=== PATIENT | male | born 1960 | race Caucasian/White ===

== ENCOUNTER → 2023-09-12 08:15 | Outpatient (BNVA) | payer SELFPAY | PROVIDERS: Family Provider Nurse Practitioner Family; PCP Nurse Practitioner Family; Visit Provider Nurse Practitioner Family | DX: D37.01 Neoplasm of uncertain behavior of lip (principal) | CPT/HCPCS: 80053; 85007; 85027; 85610; 85730 ==

== ENCOUNTER 2023-09-14 13:56 | Outpatient (CLI) | payer SELFPAY ==
--- NOTE | 2023-09-14 14:03 | CTR_ITS ---
PROCEDURE INFORMATION: Exam: CT Neck With Contrast Exam date and time: 09/14/2023 2:29 PM Age: 63 years old Clinical indication: Other: Neoplasm; Additional info: Neoplasm of uncertain behavior of lip TECHNIQUE: Imaging protocol: Computed tomography of the neck with contrast. Radiation optimization: All CT scans at this facility use at least one of these dose optimization techniques: automated exposure control; mA and/or kV adjustment per patient size (includes targeted exams where dose is matched to clinical indication); or iterative reconstruction. Contrast material: OMNI 350; Contrast volume: 100 ml; Contrast route: INTRAVENOUS (IV); COMPARISON: No relevant prior studies available. RADIATION DOSE METRICS: Total DLP (mGy-cm): 239.82 FINDINGS: Paranasal sinuses: Moderate mucosal thickening is present in the right maxillary sinus. A mucous retention cyst is noted in the left maxillary sinus. Dental: There is lucency around the right mandibular central incisor, lateral incisor, canine, and 1st premolar teeth. This is likely related to periodontal disease rather than destruction from the adjacent pre mandibular mass. Pharynx: Unremarkable. No significant tonsillar enlargement. Larynx: Unremarkable. Epiglottis is normal. Prevertebral and retropharyngeal spaces: Unremarkable. Salivary glands: Normal. Glands are normal in size. Thyroid: A nonspecific 10 mm left thyroid nodule is present. Lymph nodes: An abnormal 2.2 x 1.9 x 1.4 cm right submandibular lymph node is noted. Multiple tiny nonspecific bilateral submandibular and cervical chain lymph nodes are noted. Trachea: Visualized trachea is unremarkable. Lungs: Unremarkable as visualized. Bones/joints: No acute fracture is identified. Moderate degenerative changes of the cervical spine are present. Soft tissues: There is a 4.7 x 3.3 x 2.9 cm solid mass involving the lower lip and pre mandibular soft tissues. Malignancy is likely. CT/CT neck w con* [id number] IMPRESSION: 1. 4.7 x 3.3 x 2.9 cm solid mass involving the lower lip and pre mandibular soft tissues. Malignancy is likely. 2. Pathologic 2.2 x 1.9 x 1.4 cm right submandibular lymph node COMMENTS: Consistent with the [employer]'s Incidental Findings Committee white paper (J Am Terri Radiol 2015): In patients aged 35 years and older with an incidental thyroid nodule equal to or greater than 1.[address], MRI or extrathyroidal US, further evaluation with dedicated thyroid US is recommended for patients with normal life expectancy and without comorbidities. For smaller nodules without suspicious features, no further evaluation or follow up is recommended.
[2023-09-14] MEDS: iohexol 350 mg/mL 500 mL Btl (per mL) IV (14:47)
== END 2023-09-14 13:57 | disposition home or self-care (01) ==
LOC: RAD 13:56
PROVIDERS: Family Provider Nurse Practitioner Family; PCP Nurse Practitioner Family; Visit Provider Specialist
DX: D37.01 Neoplasm of uncertain behavior of lip (principal); J34.89 Other specified disorders of nose and nasal sinuses; J34.1 Cyst and mucocele of nose and nasal sinus; K08.89 Other specified disorders of teeth and supporting structures; E04.1 Nontoxic single thyroid nodule; I89.9 Noninfective disorder of lymphatic vessels and lymph nodes, unspecified; M47.812 Spondylosis without myelopathy or radiculopathy, cervical region
CPT/HCPCS: 70491; Q9967

== ENCOUNTER 2023-11-17 08:48 | Oncology outpatient (recurring) (ONCR) | payer OTHER, SELFPAY ==
--- NOTE | 2023-11-10 11:46 | N.ONRAD NP_ITS ---
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 4 cm, DOI@ least 2.5 cm, clinically ulcerative lesion 3.8 x 3.5 cm,- CLSI/PNI, invasion of mandible cortex and involves skin of the face, -surgical margins- 2 mm to deep FOM, 3.5 mm to midline FOM, - bone margin, + Leukoplakia 1.8 x 1.6 cm, LN+--LN LEFT LEVELS IA 0/3, IB 0/2, II 0/15, III/IV 0/18, LN RIGHT IB 1/4-2.5 cm with micro extranodal extension, IIA 0/7, III 0/10, IV 0/17, -Salivary Glands, PARTIAL DENTAL EXTRACTION-11/02/2023, DR FREDERICK consult 11/10/2023, weekly CDDP, port placement not recommended due to venous access GOOD, Quit Cigarette Smoking- 30 YEARS AGO, LOWER LIP TOBACCO Chew X 30 YRS-quit August 2023 @ DX, KPS 90, FM HX ++ COLON CANCER, composite total lower lip resection with anterior mandibulectomy, BL Neck SLN resection, Left Osteocutaneous fibular free flap, intraoperative external fixation of the mandible, mandibular plating, STSG 6 x 10 cm, tracheostomy, G-tube placement, CT SIM @ 0900 11/17/2023. STAGE: MARCO [id number] Diagnosis: C14.8, C 77.0 Radiotherapy to date: Summary > No prior radiation therapy. Chief Complaint / History of Present Illness: This is a pleasant 63-year-old male who presented with SCC of the lower lip biopsy-proven in August 2023. Patient reports that around November 2022 he started noticing swelling and soreness in the right lateral lower lip extending toward the midline he used antibiotic creams with some relief and then. States now the mass had gotten larger growing out into this skin and making his anterior teeth loose. BX by Dr. Dey in August of this year noted SCC. Patient has a 30-year history of a chewing tobacco primarily in the right lower lip. CT STN on 09/14/2023 showed a submandibular lymph node measuring 2.2 x 1.9 x 1.4 cm that appears pathologic. There is also a solid mass in the right lower lip/premandibular soft tissues measuring 4.7 x 3.3 x 2.9 cm and this was consistent with malignancy. CT of the chest on 09/14/2023 showed no evidence of metastatic disease. Patient was referred to [facility] for composite resection. He underwent this on 09/27/2023 and this returned MD-Invasive SCC. 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, DOI@ least 2.5 cm, clinically ulcerative lesion 3.8 x 3.5 cm,- CLSI/PNI, invasion of mandible cortex and involves skin of the face, -surgical margins- 2 mm to deep FOM, 3.5 mm to midline FOM, - bone margin, + Leukoplakia 1.8 x 1.6 cm, LN+--LN LEFT LEVELS IA 0/3, IB 0/2, II 0/15, III/IV 0/18, LN RIGHT IB 1/4-2.5 cm with micro extranodal extension, IIA 0/7, III 0/10, IV 0/17, -Salivary Glands, PARTIAL DENTAL EXTRACTION-11/02/2023, DR FREDERICK consult 11/10/2023, weekly CDDP, port placement not recommended due to venous access GOOD, Quit Cigarette Smoking- 30 YEARS AGO, LOWER LIP TOBACCO Chew X 30 YRS-quit August 2023 @ DX, KPS 90, FM HX ++ COLON CANCER, composite total lower lip resection with anterior mandibulectomy, BL Neck SLN resection, Left Osteocutaneous fibular free flap, intraoperative external fixation of the mandible, mandibular plating, STSG 6 x 10 cm, tracheostomy, G-tube placement. 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 Current Medications: lisinopril 10 mg PO DAILY Allergies: Penicillins Allergy (Severe, Verified 11/10/23 08:47) ADR-Itching Sulfa (Sulfonamide Antibiotics) Allergy (Intermediate, Verified 11/10/23 08:47) ADR-Nose Bleed Medical History: No history of collagen vascular disease. No previous radiation therapy. HTN, Mild Obesity, Snoring Surgical History: Past femur fracture repair, as noted above Family History: Paternal family history positive for colon cancer with 2 uncles and 1 aunt. 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 Social History: Smoking and tobacco/nicotine status: As noted above Current Complaints / Review of Systems: . Patient presently denies any rheumatic fever or scarlet fever diabetes thyroid hepatitis jaundice ulcers seizures bone or joint problems bowel or bladder problems neurological problems or psychiatric problems except as noted above. Patient has not had a colonoscopy in the past. Vital Signs: Performed on 11/10/2023 9:27 AM BMI - 23.88 kg/m2 (high), Height - 73 in, Weight - 181 lbs, Temperature - 98.7 f, Pulse - 120 /min (high), Respiration - 18 /min, O2 Sat - 99 %, Pain - 0, Fatigue - 0 and BP - 118/ 86 mm(hg). Physical Exam: Pt is AAOx3. Face: No scars lesions or masses noted. Ears: Normal Nose: No external lesions. Oral Cavity/Oropharynx: Lower lip lip reconstruction intact crusting around the flap edges with noted drooling. Patient can open 40 cm from superior lip to graft. Remaining teeth in the lower molars back are in poor repair with little recent fillings placed. Anterior teeth are missing with good healing noted. Grafting materials appear intact. Abdomen: G-tube placed Extremities: right thigh and ankle area bandaged from graft sites. Left forearm flap area healing well with scar noted Vertebral Exam: shows no bony tenderness. Performance Status: KPS 90 Pathology: As noted above Lab: Imaging: See HPI Impression: MD-Invasive SCC RT LOWER LIP, 5.5 x 4 cm DOI@ least 2.5 cm Clinically ulcerative lesion 3.8 x 3.5 cm - CLSI/PNI Invasion of mandible cortex and involves skin of the face -Surgical Margins- 2 mm to deep FOM, 3.5 mm to midline FOM -Bbone Margin + Leukoplakia 1.[address]--LN LEFT LEVELS IA 0/3, IB 0/2, II 0/15, III/IV 0/18, LN RIGHT IB 1/4-2.5 cm with micro extranodal extension, IIA 0/7, III 0/10, IV 0/17 -Salivary Glands PARTIAL DENTAL EXTRACTION-11/02/2023 DR FREDERICK Consult 11/10/2023, weekly CDDP Port placement not recommended due to venous access GOOD Quit Cigarette Smoking- 30 YEARS AGO, LOWER LIP TOBACCO Chew X 30 YRS-quit August 2023 @ DX KPS 90 FM HX ++ COLON CANCER Composite total lower lip resection with anterior mandibulectomy BL Neck SLN resection Left Osteocutaneous fibular free flap Intraoperative external fixation of the mandible, mandibular plating STSG 6 x 10 cm Tracheostomy G-tube Placement PLAN: Discussed with patient and options regarding treatment of this locally advanced SCC of the lower lip Questions answered to their satisfaction NCCN version 4.2023 oral cavity to include mucosal lip were discussed in detail with the patient and . We would recommend delay in simulation for another week due to grafting procedures as well as recent teeth extraction. CT simulation and evaluation by Dr. Elliott will be done on 11/17/2023. We did discuss our findings with Dr. Frederick this date and my recommendation to wait 1 week for simulation. Signed by: 11/10/2023 11:45:31 AM <<Signature on File>> Time spent with patient: CPT Code: CPT Code:
== END 2023-11-23 23:59 | disposition home or self-care (01) ==
PROVIDERS: Family Provider Nurse Practitioner Family; PCP Nurse Practitioner Family; Visit Provider Radiology Radiation Oncology
DX: Z51.0 Encounter for antineoplastic radiation therapy (principal); C00.8 Malignant neoplasm of overlapping sites of lip; C79.51 Secondary malignant neoplasm of bone; C79.2 Secondary malignant neoplasm of skin; Z87.891 Personal history of nicotine dependence; Z93.0 Tracheostomy status; Z93.1 Gastrostomy status
CPT/HCPCS: 77300; 77301; 77334; 77338

== ENCOUNTER 2023-12-09 09:28 | Oncology outpatient (recurring) (ONCR) | payer OTHER, SELFPAY ==
[2023-11-24 08:22] VITALS: BP 133/76; PULSE 96; RESP 16; TEMP 36.5; O2SAT 94
[2023-11-24 08:50] LABS: Basophils % 0.2 %; Eosinophils # 0.2 10^3/uL (0.0-0.8); Eosinophils % 2.4 %; Hematocrit 41.5 % (37-53); Lymphocytes # 1.6 10^3/uL (0.8-4.8); Lymphocytes % 17.4 %; Mean Corpuscular HGB Conc 33.7 g/dL (30-55); Mean Corpuscular Hemoglobin 28.6 pg (27-33); Mean Corpuscular Volume 84.9 fl (82-101); Mean Platelet Volume 12.2 fL (7.4-10.4); Monocytes # 0.8 10^3/uL (0.2-0.9); Monocytes % 8.4 %; Neutrophils # 6.33 10^3/uL (1.8-7.7); Neutrophils % 71.3 %; Nucleated Red Blood Cells % 0 %; Platelet Count 310 10^3/cmm (157-399); Red Blood Count 4.89 10^6/uL (3.85-5.65); Red Cell Distribution Width 12.5 % (12.1-15.1); White Blood Count 8.89 10^3/uL (3.29-11.43)
[2023-11-24 09:08] LABS: Alanine Aminotransferase 27 U/L (0-41); Albumin Level 4.1 g/dL (3.5-5.2); Alkaline Phosphatase 100 U/L (40-130); Blood Urea Nitrogen 17 mg/dL (8-23); Calcium 9.7 mg/dL (8.5-10.5); Carbon Dioxide 23 mmol/L (22-29); Chloride 102 mmol/L (98-107); Globulin 3.6 g/dL (1.3-4.6); Glomerular Filtration Rate 136.5 mL/min (90-130); Glucose 133 mg/dL (65-115); Osmolality Calculated 291 mOsm/kg (285-295); Sodium 139 mmol/L (136-145); Total Bilirubin 0.2 mg/dL (0.15-1.2); Total Protein 7.7 g/dL (6.6-8.7)
[2023-11-24 09:09] LABS: Anion Gap 17.9 (5-19); Aspartate Amino Transferase 20 U/L (0-40); Potassium 3.9 mmol/L (3.5-5.1)
[2023-11-24] MEDS: magnesium sulfate premix 2 GM/50 ML PIGGYBACK IV (09:24)
[2023-11-24] MEDS: sodium chlor 0.9% + KCl 20 mEq 20 MEQ/1,000 ML BAG 500 MEQ IV (09:24)
[2023-11-24 10:43] VITALS: BMI 25.0
[2023-11-24] MEDS: diphenhydrAMINE 50 mg/mL SDV 1mL 25 MG IVP (11:39)
[2023-11-24] MEDS: sodium chloride 0.9% 250 ML 75 ML IV (11:39)
[2023-11-24] MEDS: famotidine 20 mg/2 mL INJ IVP (11:41)
[2023-11-24] MEDS: palonosetron 0.25 mg/5 mL SDV IVP (11:50)
[2023-11-24] MEDS: OLANZapine 5 mg TABLET PO (11:54)
[2023-11-24] MEDS: dexamethasone 4 mg/mL INJ 12 MG IVP (11:55)
[2023-11-24] MEDS: fosaprepitant 150 MG in sodium chloride 0.9% 150 ML 300 MG IV (12:06)
[2023-11-24] MEDS: SODIUM CHLORIDE 0.9% IV (12:40)
[2023-11-24] MEDS: CISPLATIN IV (12:40)
[2023-11-24] MEDS: FUROsemide 10 mg/mL SDV 2mL 20 MG IVP (14:17)
[2023-11-24] MEDS: potassium chloride 20 MEQ in sodium chloride 0.9% 500 ML 500 MEQ IV (14:21)
[2023-11-24 16:35] VITALS: BP 113/65; PULSE 83; RESP 16; O2SAT 93
--- NOTE | 2023-11-29 10:04 | ONCRAD TMN_ITS ---
Radiation Oncology Weekly Treatment Management Patient: Dolly Andujar> MR#: [id number] : 1960> Attending Physician: Dr. Kim Vitale Date of Service: 11/29/2023 Fractions: 4 out of 30 Referring Physician(s) : Diagnosis: C14.8 - Malignant neoplasm of overlapping sites of lip, oral cavity and pharynx, Diagnosed 10/07/2023 (Active) Stage X, C77.0 - Secondary and unspecified malignant neoplasm of lymph nodes of head, face and neck, Diagnosed 10/07/2023 (Active) Radiotherapy to date: Course: HN 2023, Treatment Site: HN 60Gy, Ref. ID: [id number], Energy: 6X, Dose/Fx (cGy): 200, #Fx: , Dose Correction (cGy): 0, Total Dose Delivered (cGy): 800, Start Date: 11/24/2023, Elapsed Days: 5 Reason for visit: The patient is being seen today as part of their regularly scheduled weekly on treatment visits to assess for acute toxicities from radiotherapy. Review of Systems: Patient has noticed no changes. He had no questions today Vital Signs: Performed on 11/29/2023 9:38 AM BMI - 24.065 kg/m2 (high), Height - 73 in, Weight - 182.4 lbs, Temperature - 97.7 f, Pulse - 90 /min, Respiration - 18 /min, O2 Sat - 98 %, Pain - 0, Fatigue - 0 and BP - 112/ 73 mm(hg). Physical Exam: No changes on exam. He does have the skin graft area on his left calf wrapped today. He did meet with the surgeon last week and was told he would take more time to heal. Imaging: Radiation therapy imaging related to accurate target localization (i.e. KV, MV and CBCT) was reviewed. Appropriate changes, if any, were made to ensure treatment accuracy. Plan: Will continue with his treatments as planned. He is using heliosis and the BL I-S probiotic. Signed by: Dr. Kim Vitale 11/29/2023 10:02:27 AM
[2023-12-01 07:59] LABS: Basophils % 0.3 %; Eosinophils # 0.2 10^3/uL (0.0-0.8); Eosinophils % 1.7 %; Hematocrit 40.6 % (37-53); Lymphocytes # 1.4 10^3/uL (0.8-4.8); Lymphocytes % 13.1 %; Mean Corpuscular HGB Conc 34.5 g/dL (30-55); Mean Corpuscular Hemoglobin 29.1 pg (27-33); Mean Corpuscular Volume 84.4 fl (82-101); Mean Platelet Volume 11.9 fL (7.4-10.4); Monocytes # 0.8 10^3/uL (0.2-0.9); Monocytes % 7.4 %; Neutrophils # 8.12 10^3/uL (1.8-7.7); Neutrophils % 76.9 %; Nucleated Red Blood Cells % 0 %; Platelet Count 292 10^3/cmm (157-399); Red Blood Count 4.81 10^6/uL (3.85-5.65); Red Cell Distribution Width 12.4 % (12.1-15.1); White Blood Count 10.55 10^3/uL (3.29-11.43)
[2023-12-01 08:12] LABS: Alanine Aminotransferase 30 U/L (0-41); Albumin Level 4.1 g/dL (3.5-5.2); Alkaline Phosphatase 103 U/L (40-130); Blood Urea Nitrogen 26 mg/dL (8-23); Calcium 9.9 mg/dL (8.5-10.5); Carbon Dioxide 22 mmol/L (22-29); Chloride 99 mmol/L (98-107); Creatinine Clr Calc Pharmacy 106.3893; Globulin 3.5 g/dL (1.3-4.6); Glucose 141 mg/dL (65-115); Osmolality Calculated 285 mOsm/kg (285-295); Sodium 134 mmol/L (136-145); Total Bilirubin 0.2 mg/dL (0.15-1.2); Total Protein 7.6 g/dL (6.6-8.7)
[2023-12-01 08:14] LABS: Anion Gap 17.5 (5-19); Aspartate Amino Transferase 21 U/L (0-40); Potassium 4.5 mmol/L (3.5-5.1)
[2023-12-01] MEDS: magnesium sulfate premix 2 GM/50 ML PIGGYBACK IV (08:40)
[2023-12-01] MEDS: sodium chlor 0.9% + KCl 20 mEq 20 MEQ/1,000 ML BAG 500 MEQ IV (08:40)
[2023-12-01] MEDS: fosaprepitant 150 MG in sodium chloride 0.9% 150 ML 300 MG IV (11:03)
[2023-12-01] MEDS: sodium chloride 0.9% 250 ML 75 ML IV (11:03)
[2023-12-01] MEDS: OLANZapine 5 mg TABLET PO (11:04)
[2023-12-01] MEDS: dexamethasone 4 mg/mL INJ 12 MG IVP (11:04)
[2023-12-01] MEDS: diphenhydrAMINE 50 mg/mL SDV 1mL 25 MG IVP (11:13)
[2023-12-01] MEDS: palonosetron 0.25 mg/5 mL SDV IVP (11:21)
[2023-12-01] MEDS: famotidine 20 mg/2 mL INJ IVP (11:26)
[2023-12-01] MEDS: SODIUM CHLORIDE 0.9% IV (12:27)
[2023-12-01] MEDS: CISPLATIN IV (12:27)
[2023-12-01] MEDS: FUROsemide 10 mg/mL SDV 2mL 20 MG IVP (13:26)
[2023-12-01] MEDS: potassium chloride 20 MEQ in sodium chloride 0.9% 500 ML 500 MEQ IV (13:29)
[2023-12-01 14:50] VITALS: BP 132/78; PULSE 85; RESP 16; TEMP 36.6; O2SAT 98
--- NOTE | 2023-12-06 10:06 | ONCRAD TMN_ITS ---
Radiation Oncology Weekly Treatment Management Patient: Dolly Andujar> MR#: [id number] : 1960> Attending Physician: Dr. Kim Vitale Date of Service: 12/06/2023 Fractions: 9 out of 30 Referring Physician(s) : Diagnosis: C14.8 - Malignant neoplasm of overlapping sites of lip, oral cavity and pharynx, Diagnosed 10/07/2023 (Active) Stage X, C77.0 - Secondary and unspecified malignant neoplasm of lymph nodes of head, face and neck, Diagnosed 10/07/2023 (Active) Radiotherapy to date: Course: HN 2023, Treatment Site: HN 60Gy, Ref. ID: [id number], Energy: 6X, Dose/Fx (cGy): 200, #Fx: , Dose Correction (cGy): 0, Total Dose Delivered (cGy): 1,800, Start Date: 11/24/2023, Elapsed Days: 12 Reason for visit: The patient is being seen today as part of their regularly scheduled weekly on treatment visits to assess for acute toxicities from radiotherapy. Review of Systems: Patient has noticed no changes in his oral cavity. Vital Signs: Performed on 12/06/2023 9:41 AM BMI - 24.17 kg/m2 (high), Height - 73 in, Weight - 183.2 lbs, Temperature - 97 f, Pulse - 99 /min, Respiration - 18 /min, O2 Sat - 97 %, Pain - 0, Fatigue - 0 and BP - 125/ 79 mm(hg). Physical Exam: No changes on exam Imaging: Radiation therapy imaging related to accurate target localization (i.e. KV, MV and CBCT) was reviewed. Appropriate changes, if any, were made to ensure treatment accuracy. Plan: Will continue with treatments as planned Signed by: Dr. Kim Vitale 12/06/2023 10:04:56 AM
[2023-12-08 07:57] LABS: Basophils % 0.3 %; Eosinophils # 0.1 10^3/uL (0.0-0.8); Eosinophils % 1.3 %; Lymphocytes # 1.4 10^3/uL (0.8-4.8); Lymphocytes % 12.2 %; Mean Corpuscular HGB Conc 34.1 g/dL (30-55); Mean Corpuscular Hemoglobin 28.9 pg (27-33); Mean Corpuscular Volume 84.8 fl (82-101); Monocytes # 0.9 10^3/uL (0.2-0.9); Neutrophils # 8.59 10^3/uL (1.8-7.7); Neutrophils % 77.6 %; Nucleated Red Blood Cells % 0 %; Platelet Count 307 10^3/cmm (157-399); Red Cell Distribution Width 12.6 % (12.1-15.1); White Blood Count 11.06 10^3/uL (3.29-11.43)
[2023-12-08 08:14] LABS: Alanine Aminotransferase 39 U/L (0-41); Albumin Level 4.1 g/dL (3.5-5.2); Alkaline Phosphatase 113 U/L (40-130); Aspartate Amino Transferase 18 U/L (0-40); Blood Urea Nitrogen 20 mg/dL (8-23); Calcium 9.8 mg/dL (8.5-10.5); Carbon Dioxide 22 mmol/L (22-29); Chloride 97 mmol/L (98-107); Creatinine Clr Calc Pharmacy 94.7869; Globulin 3.6 g/dL (1.3-4.6); Glomerular Filtration Rate 85.5 mL/min (90-130); Glucose 128 mg/dL (65-115); Osmolality Calculated 284 mOsm/kg (285-295); Sodium 135 mmol/L (136-145); Total Bilirubin 0.2 mg/dL (0.15-1.2); Total Protein 7.7 g/dL (6.6-8.7)
[2023-12-08] MEDS: sodium chlor 0.9% + KCl 20 mEq 20 MEQ/1,000 ML BAG 500 MEQ IV (09:47)
[2023-12-08] MEDS: magnesium sulfate premix 2 GM/50 ML PIGGYBACK IV (09:47)
[2023-12-08 10:59] VITALS: BP 127/60; PULSE 88; RESP 18; TEMP 36.9; O2SAT 97
--- NOTE | 2023-12-08 11:01 | PC.NURSE ---
0850 Left calf graft site dressing removed. Wound appears red with eschar and small amount of yellow foul smelling drainage. Warm to touch. Denies pain. slight edema to calf.
[2023-12-08] MEDS: sodium chloride 0.9% 250 ML 75 ML IV (12:07)
[2023-12-08] MEDS: fosaprepitant 150 MG in sodium chloride 0.9% 150 ML 300 MG IV (12:08)
[2023-12-08] MEDS: diphenhydrAMINE 50 mg/mL SDV 1mL 25 MG IVP (12:09)
[2023-12-08] MEDS: dexamethasone 4 mg/mL INJ 12 MG IVP (12:12)
[2023-12-08] MEDS: OLANZapine 5 mg TABLET PO (12:16)
[2023-12-08] MEDS: palonosetron 0.25 mg/5 mL SDV IVP (12:16)
[2023-12-08] MEDS: famotidine 20 mg/2 mL INJ IVP (12:21)
[2023-12-08] MEDS: SODIUM CHLORIDE 0.9% IV (13:23)
[2023-12-08] MEDS: CISPLATIN IV (13:23)
[2023-12-08] MEDS: FUROsemide 10 mg/mL SDV 2mL 20 MG IVP (14:35)
[2023-12-08] MEDS: potassium chloride 20 MEQ in sodium chloride 0.9% 500 ML 500 MEQ IV (14:35)
[2023-12-08 15:00] VITALS: BP 122/77; PULSE 79; RESP 18; TEMP 36.6; O2SAT 99
== END 2023-12-09 23:59 | disposition home or self-care (01) ==
PROVIDERS: Internal Medicine Medical Oncology; Nurse Practitioner Family; Family Provider Nurse Practitioner Family; PCP Nurse Practitioner Family; Visit Provider Radiology Radiation Oncology
DX: Z51.0 Encounter for antineoplastic radiation therapy (principal); C14.8 Malignant neoplasm of overlapping sites of lip, oral cavity and pharynx
CPT/HCPCS: 77336; 77386; 80053; 85025; 87070; 87075; 87077; 87186; 87205; 96365; 96366; 96367; 96368; 96375; 96413; J1100; J1200; J1453; J1940; J2469; J3475; J3480; J3490; J7040; J7050; J9060

== ENCOUNTER 2023-12-21 06:40 | Day surgery (SDC) | payer OTHER, SELFPAY ==
[2023-12-21] VITALS (7 sets, daily range): BP systolic 122–150; BP diastolic 76–114; PULSE 66–99; RESP 16–18; TEMP 36.3–36.8; O2SAT 94–99
--- NOTE | 2023-12-21 06:41 | SC_ITS ---
WS: [id number] INTRAOPERATIVE TECHNIQUE: 2 Spot fluoroscopic images for intraoperative purposes. FLUOROSCOPY TIME: 25.5 seconds CLINICAL INFORMATION: port placement FINDINGS: RIGHT central venous catheter with tip in the mid to distal SVC. No pneumothorax. SC/C-arm FL for CVA [id number] IMPRESSION: Images obtained for intraoperative purposes.
[2023-12-21] MEDS: sodium chloride 0.9% 1,000 ML 30 ML IV (06:56)
--- NOTE | 2023-12-21 08:33 | ANES.PREANE2 ---
Pre-Anesthetic Assessment Height/Weight: Height 5 ft 11 in Weight 185 lb Temp Pulse Resp BP Pulse Ox O2 Del Method 97.3 F L 99 16 150/114 99 Room Air 12/21/23 06:51 12/21/23 06:51 12/21/23 06:51 12/21/23 06:51 12/21/23 06:51 12/21/23 06:51 Operation Date: 12/21/23 08:20 Proposed Procedures p Portacath Placement 28319, 95.828(Not Applicable) - Agustin Man MD Was Beta Taryn taken within 24 hours: N/A Was Clonidine taken within 24 hours: N/A Last intake: Intake Last Liquid Date 12/20/23 Last Liquid Time 21:00 Last Solid Date 12/20/23 Last Solid Time 21:00 Social No alcohol and No tobacco Exam alert, oriented x 3, clear to auscultation bilaterally and regular rate & rhythm Airway Mallampati: Class IV Comments: Comments: Patient has very minimal mouth opening with enlarged lip and submandibular region secondary to cancer and radiation. Patient appears to be a difficult intubation. Anesthetic Plan ASA status: 3 Anesthesia: MAC Other: No prior issues with anesthesia in the past PEG tube in place, n.p.o. since midnight Patient has carcinoma of the lip and jaw. Currently undergoing chemotherapy. Patient completed radiation Very minimal mouth opening with poor dentition and neck/lip swelling. Labs reviewed Plan for MAC today, will most likely need fiberoptic if patient requires airway manipulation Medications/Allergies Home Medications Medication Instructions Recorded Confirmed Last Taken Type lisinopril 10 mg tablet 10 mg PO DAILY #90 tabs 09/20/23 12/20/23 12/20/23 Rx lorazepam 1 mg tablet 0.5 - 1 mg (0.5 - 1 x 1 mg) PO Q6H 11/24/23 12/20/23 12/20/23 Rx PRN Severe Nausea #30 tabs prochlorperazine maleate 10 mg 10 mg PO Q4H PRN Mild Nausea #30 11/24/23 12/20/23 12/18/23 Rx tablet (Compazine) tabs citalopram 20 mg tablet 20 mg PO DAILY #30 tabs 12/08/23 12/20/23 12/20/23 Rx famotidine 20 mg tablet 20 mg PO BID #60 tabs 12/15/23 12/20/23 12/20/23 Rx levofloxacin 500 mg tablet 500 mg PO DAILY #7 tabs 12/16/23 12/20/23 12/20/23 Rx fluconazole 100 mg tablet 100 mg PO DAILY thrush #10 tabs 12/20/23 12/21/23 12/20/23 Rx (Diflucan) lidocaine HCl 2 % mucosal solution 5 ml mucous membrane QID PRN pain 12/20/23 12/21/23 Unknown Rx (Lidocaine Viscous) #100 mL Allergies Allergy/AdvReac Type Severity Reaction Status Date / Time Penicillins Allergy Severe ADR-Itching Verified 12/15/23 07:54 aspirin Allergy Intermediate ADR-Gastrointestinal Verified 12/15/23 07:54 Upset Sulfa (Sulfonamide Allergy Intermediate ADR-Nose Verified 12/15/23 07:54 Antibiotics) Bleed Current Medications Generic Name Dose Route Start Last Admin Trade Name Freq PRN Reason Stop Dose Admin Sodium Chloride 1,000 mls @ 30 mls/hr 12/21/23 06:45 12/21/23 06:56 Sodium Chloride 0.9% IV 12/22/23 06:44 30 mls/hr .Q24H MEMO Administration PFSH Anesthesia Medical History Depression Hypertension Oral-mouth cancer Surgical History History of oral surgery (09/27/23) composite total lower lip resection with anterior mandibulectomy, right neck dissection, left osteocutaneous fibular free flap, and split-thickness skin graft S/P ORIF (open reduction internal fixation) fracture right leg fracture Social History Smoking and tobacco/nicotine status: tobacco/nicotine user, details unknown (20 years chewing tobacco use/quit 2023) Quit status (tobacco/nicotine): has quit using Former quit date comment: He quit smoking 20 yrs ago. He chewed tobacco for 30 yrs, quit August 2023. Alcohol intake: current Data Anesthesia Cardiac Studies: No Data to Display
--- NOTE | 2023-12-21 08:35 | W.PM.OPSUD ---
Surgery/Procedure H&P Update DATE OF PROCEDURE: December 21, 2023 DATE H&P PERFORMED: 12/13/23 H&P UPDATE INFORMATION: I have reviewed H&P completed within last 30 days, I have examined patient prior to procedure, No changes to prior documentation and Changes to prior documentation as noted here PREOP DIAGNOSIS: Oropharyngeal carcinoma PRIMARY INDICATION FOR PROCEDURE: Oropharyngeal carcinoma PLANNED PROCEDURE: Operation Date: 12/21/23 08:20 Proposed Procedures p Portacath Placement 47642, 95.828(Not Applicable) - Agustin Man MD
[2023-12-21] MEDS: ceFAZolin 2,000 mg SDV 2000 MG IVP (09:10)
[2023-12-21] MEDS: BUPivacaine 0.25% INJ 10 mL INJECTION (09:43)
[2023-12-21] MEDS: heparin, porcine 1,000 unit/mL INJ 10 mL 6000 UNIT IRRIGATION (09:43)
[2023-12-21] MEDS: lidocaine 1% 10 ML INJ INJECTION (09:44)
--- NOTE | 2023-12-21 10:06 | P.OP_ITS ---
Date of Procedure: 12/21/23 Surgeon: Agustin Man MD Clinical Specialist Vascular(s): None Procedure(s) performed: Intravenous catheter placement (port) Findings of the procedure(s): Adequate placement confirmed with fluoroscopy. Right internal jugular vein was accessed for port placement. Estimated blood loss: 5 mL Specimen(s) removed: None Post-operative diagnosis: Oropharyngeal carcinoma Pathology: None Implant(s): Central venous catheter (Port-A-Cath) Tourniquet Time: N/A Anesthesia: MAC Complications: None Brief history/preop diagnosis: Oropharyngeal carcinoma Full operative report: Patient was brought into the operating room and a timeout was carried out. Procedure was done under MAC. Patient was placed supine with the arms tucked and in Trendelenburg. Patient was prepped and draped in the usual sterile fashion. Using ultrasound guidance the right internal jugular vein was accessed. A guidewire was then placed down to the atriocaval junction using fluoroscopy. The finder needle was removed and the guidewire was secured. I then turned my attention to creating a pocket over the right chest. Make sure to locally infiltrated using plain lidocaine and bupivacaine at the site of the pocket and throughout the tunnel site. I confirmed adequate hemostasis at the pocket. I then proceeded to place the port that was already preassembled and flushed with heparin saline and the chest pocket. I tunneled the catheter from the chest to the neck at the site where I accessed the internal jugular vein. I measured and adjusted the length of the catheter so it would reach the atrial caval junction. At this point, I used a dilator to dilate the tract into the internal jugular vein using fluoroscopy. I removed the guidewire and proceeded to thread the central venous catheter through the introducer. In the process, I removed the sheath as a completely pushed the catheter into the internal jugular vein. I then confirmed adequate placement of the catheter using fluoroscopy. The tip of the catheter was confirmed to be placed in the atriocaval junction. There were no kinks noted throughout the trajectory of the catheter. I then proceeded to test the port and was satisfied with its funct ionality. I proceeded to flushed the catheter without any issues. I then hep- locked the port. Skin was closed using deep dermal 3-0 Vicryl, subcuticular 4-0 Monocryl, and Dermabond. Patient was then transferred to PACU without any complications. Condition: Stable Dispostion: Home
--- NOTE | 2023-12-21 11:00 | ANE.PACU2 ---
Inpatient post-anesthesia follow up: Airway intact: Yes Vital signs: Temperature 98.2 F Pulse Rate 70 Respiratory Rate 17 Blood Pressure 138/82 Pulse Oximetry 95 Oxygen Delivery Me thod Room Air Oxygen Flow Rate Fraction of Inspir ed Oxygen Hydration adequate: Yes Nausea and vomiting: No Pain level: 1 Mental status: Baseline
== END 2023-12-21 10:58 | disposition home or self-care (01) ==
PROVIDERS: Family Provider Nurse Practitioner Family; PCP Nurse Practitioner Family; Visit Provider Student in an Organized Health Care Education/Training Program
PROC: (CPT 36561; principal; 2023-12-21 08:10)
DX: C10.9 Malignant neoplasm of oropharynx, unspecified (principal); I10 Essential (primary) hypertension; F32.A Depression, unspecified
CPT/HCPCS: 36561; 76000; 77001; C1788; J0690; J1644; J2250; J2704; J3010; J3490; J7030

== ENCOUNTER 2023-12-23 09:34 | Oncology outpatient (recurring) (ONCR) | payer OTHER, SELFPAY ==
--- NOTE | 2023-12-13 10:07 | ONCRAD TMN_ITS ---
Radiation Oncology Weekly Treatment Management Patient: Con Alberto MR#: [id number] : 1960 Attending Physician: Dr. Kim Vitale Date of Service: 12/13/2023 Fractions: 14 out of 30 Referring Physician(s) : Diagnosis: C14.8 - Malignant neoplasm of overlapping sites of lip, oral cavity and pharynx, Diagnosed 10/07/2023 (Active) Stage X, C77.0 - Secondary and unspecified malignant neoplasm of lymph nodes of head, face and neck, Diagnosed 10/07/2023 (Active) Radiotherapy to date: Course: HN 2023, Treatment Site: HN 60Gy, Ref. ID: [id number], Energy: 6X, Dose/Fx (cGy): 200, #Fx: , Dose Correction (cGy): 0, Total Dose Delivered (cGy): 2,800, Start Date: 11/24/2023, Elapsed Days: 19 Reason for visit: The patient is being seen today as part of their regularly scheduled weekly on treatment visits to assess for acute toxicities from radiotherapy. Review of Systems: Patient has noticed that his saliva has become much thicker this week. He is also lost the taste for his Mountain Dew Vital Signs: Performed on 12/13/2023 9:27 AM BMI - 24.012 kg/m2 (high), Height - 73 in, Weight - 182.0 lbs, Temperature - 97.6 f, Pulse - 84 /min, Respiration - 16 /min, O2 Sat - 98 %, Pain - 0, Fatigue - 0 and BP - 135/ 85 mm(hg). Physical Exam: On exam he skin through the treatment field is erythematous. He is doing a lot of dabbing with a washcloth because of the saliva of the drips out of his mouth. Imaging: Radiation therapy imaging related to accurate target localization (i.e. KV, MV and CBCT) was reviewed. Appropriate changes, if any, were made to ensure treatment accuracy. Plan: We talked about starting some Mucinex to see if this will help thin some of the secretions. Also reviewed with him that he is fpc through with treatment tomorrow. Will continue with his treatments as planned. His will get some Aquaphor or cortisone cream to put on his skin. Signed by: Dr. Kim Vitale 12/13/2023 10:05:57 AM
[2023-12-15 08:12] LABS: Basophils % 0.4 %; Eosinophils # 0.1 10^3/uL (0.0-0.8); Eosinophils % 1.3 %; Hematocrit 36.6 % (37-53); Lymphocytes # 1.1 10^3/uL (0.8-4.8); Lymphocytes % 15.6 %; Mean Corpuscular HGB Conc 34.7 g/dL (30-55); Mean Corpuscular Hemoglobin 29.3 pg (27-33); Mean Corpuscular Volume 84.3 fl (82-101); Monocytes # 0.7 10^3/uL (0.2-0.9); Monocytes % 9.7 %; Neutrophils # 5.17 10^3/uL (1.8-7.7); Neutrophils % 72.6 %; Nucleated Red Blood Cells % 0 %; Platelet Count 317 10^3/cmm (157-399); Red Blood Count 4.34 10^6/uL (3.85-5.65); Red Cell Distribution Width 12.9 % (12.1-15.1); White Blood Count 7.12 10^3/uL (3.29-11.43)
[2023-12-15 08:28] LABS: Alanine Aminotransferase 17 U/L (0-41); Albumin Level 4.1 g/dL (3.5-5.2); Alkaline Phosphatase 107 U/L (40-130); Anion Gap 15.3 (5-19); Aspartate Amino Transferase 15 U/L (0-40); Blood Urea Nitrogen 21 mg/dL (8-23); Calcium 9.8 mg/dL (8.5-10.5); Carbon Dioxide 25 mmol/L (22-29); Chloride 102 mmol/L (98-107); Globulin 3.1 g/dL (1.3-4.6); Glomerular Filtration Rate 114.3 mL/min (90-130); Glucose 120 mg/dL (65-115); Osmolality Calculated 290 mOsm/kg (285-295); Potassium 4.3 mmol/L (3.5-5.1); Sodium 138 mmol/L (136-145); Total Bilirubin 0.2 mg/dL (0.15-1.2); Total Protein 7.2 g/dL (6.6-8.7)
[2023-12-15] MEDS: magnesium sulfate premix 2 GM/50 ML PIGGYBACK IV (09:12)
[2023-12-15] MEDS: sodium chlor 0.9% + KCl 20 mEq 20 MEQ/1,000 ML BAG 500 MEQ IV (09:13)
[2023-12-15] MEDS: sodium chloride 0.9% 250 ML 35 ML IV (11:31)
[2023-12-15] MEDS: fosaprepitant 150 MG in sodium chloride 0.9% 150 ML 300 MG IV (11:32)
[2023-12-15] MEDS: OLANZapine 5 mg TABLET PO (11:40)
[2023-12-15] MEDS: palonosetron 0.25 mg/5 mL SDV IVP (12:14)
[2023-12-15] MEDS: dexamethasone 4 mg/mL INJ 12 MG IVP (12:14)
[2023-12-15] MEDS: diphenhydrAMINE 50 mg/mL SDV 1mL 25 MG IVP (12:23)
[2023-12-15] MEDS: famotidine 20 mg/2 mL INJ IVP (12:26)
[2023-12-15] MEDS: CISPLATIN IV (12:37)
[2023-12-15] MEDS: SODIUM CHLORIDE 0.9% IV (12:37)
[2023-12-15] MEDS: FUROsemide 10 mg/mL SDV 2mL 20 MG IVP (13:56)
[2023-12-15] MEDS: potassium chloride 20 MEQ in sodium chloride 0.9% 500 ML 500 MEQ IV (13:57)
[2023-12-15 16:33] VITALS: BP 123/72; PULSE 74; RESP 19; TEMP 36.6; O2SAT 98
--- NOTE | 2023-12-20 09:59 | ONCRAD TMN_ITS ---
Radiation Oncology Weekly Treatment Management Patient: Dolly Andujar> MR#: [id number] : 1960> Attending Physician: Dr. Kim Vitale Date of Service: 12/20/2023 Referring Physician(s) : Diagnosis: C14.8 - Malignant neoplasm of overlapping sites of lip, oral cavity and pharynx, Diagnosed 10/07/2023 (Active) Stage X, C77.0 - Secondary and unspecified malignant neoplasm of lymph nodes of head, face and neck, Diagnosed 10/07/2023 (Active) Radiotherapy to date: Course: HN 2023, Treatment Site: HN 60Gy, Ref. ID: [id number], Energy: 6X, Dose/Fx (cGy): 200, #Fx: , Dose Correction (cGy): 0, Total Dose Delivered (cGy): 3,800, Start Date: 11/24/2023, Elapsed Days: 26 Reason for visit: The patient is being seen today as part of their regularly scheduled weekly on treatment visits to assess for acute toxicities from radiotherapy. Review of Systems: Vital Signs: Performed on 12/20/2023 9:19 AM BMI - 24.223 kg/m2 (high), Height - 73 in, Weight - 183.6 lbs, Temperature - 96.8 f, Pulse - 84 /min, Respiration - 18 /min, O2 Sat - 99 %, Pain - 0, Fatigue - 0 and BP - 122/ 89 mm(hg). Physical Exam: Imaging: Radiation therapy imaging related to accurate target localization (i.e. KV, MV and CBCT) was reviewed. Appropriate changes, if any, were made to ensure treatment accuracy. Plan: Signed by: Macrina Garcia 12/20/2023 9:59:04 AM
--- NOTE | 2023-12-20 10:23 | ONCRAD TMN_ITS ---
Radiation Oncology Weekly Treatment Management Patient: Dolly Andujar> MR#: [id number] : 1960> Attending Physician: Dr. Kim Vitale Date of Service: 12/20/2023 Fractions: 19 out of 30 Referring Physician(s) : Diagnosis: C14.8 - Malignant neoplasm of overlapping sites of lip, oral cavity and pharynx, Diagnosed 10/07/2023 (Active) Stage X, C77.0 - Secondary and unspecified malignant neoplasm of lymph nodes of head, face and neck, Diagnosed 10/07/2023 (Active) Radiotherapy to date: Course: HN 2023, Treatment Site: HN 60Gy, Ref. ID: [id number], Energy: 6X, Dose/Fx (cGy): 200, #Fx: , Dose Correction (cGy): 0, Total Dose Delivered (cGy): 3,800, Start Date: 11/24/2023, Elapsed Days: 26 Reason for visit: The patient is being seen today as part of their regularly scheduled weekly on treatment visits to assess for acute toxicities from radiotherapy. Review of Systems: Patient has noticed some soreness across his tongue and in the gingival area. His weight has remained stable. Vital Signs: Performed on 12/20/2023 9:19 AM BMI - 24.223 kg/m2 (high), Height - 73 in, Weight - 183.6 lbs, Temperature - 96.8 f, Pulse - 84 /min, Respiration - 18 /min, O2 Sat - 99 %, Pain - 0, Fatigue - 0 and BP - 122/ 89 mm(hg). Physical Exam: On exam the skin is more erythematous in the submental area. His oral cavity reveals what appears to be thrush across the soft palate on his tongue. Imaging: Radiation therapy imaging related to accurate target localization (i.e. KV, MV and CBCT) was reviewed. Appropriate changes, if any, were made to ensure treatment accuracy. Plan: Will continue with his treatments. I have sent Diflucan and Magic mix to his pharmacy. Signed by: Dr. Kim Vitale 12/20/2023 10:22:38 AM
[2023-12-22 07:35] VITALS: BMI 25.7
[2023-12-22 07:50] VITALS: BP 125/82; PULSE 85; TEMP 36.7; O2SAT 97
[2023-12-22 07:54] LABS: Basophils % 0.4 %; Eosinophils # 0.1 10^3/uL (0.0-0.8); Eosinophils % 1.3 %; Hematocrit 33.5 % (37-53); Lymphocytes # 0.8 10^3/uL (0.8-4.8); Lymphocytes % 10.3 %; Mean Corpuscular HGB Conc 34.3 g/dL (30-55); Mean Corpuscular Hemoglobin 29.3 pg (27-33); Mean Corpuscular Volume 85.5 fl (82-101); Mean Platelet Volume 10.9 fL (7.4-10.4); Monocytes # 0.6 10^3/uL (0.2-0.9); Monocytes % 8.2 %; Neutrophils # 6.23 10^3/uL (1.8-7.7); Neutrophils % 79.5 %; Nucleated Red Blood Cells % 0 %; Platelet Count 198 10^3/cmm (157-399); Red Blood Count 3.92 10^6/uL (3.85-5.65); Red Cell Distribution Width 13.2 % (12.1-15.1); White Blood Count 7.83 10^3/uL (3.29-11.43)
[2023-12-22 08:14] LABS: Alanine Aminotransferase 15 U/L (0-41); Albumin Level 3.8 g/dL (3.5-5.2); Alkaline Phosphatase 113 U/L (40-130); Anion Gap 16.4 (5-19); Aspartate Amino Transferase 12 U/L (0-40); Blood Urea Nitrogen 19 mg/dL (8-23); Calcium 9.2 mg/dL (8.5-10.5); Carbon Dioxide 24 mmol/L (22-29); Chloride 102 mmol/L (98-107); Creatinine Clr Calc Pharmacy 106.3893; Globulin 3.1 g/dL (1.3-4.6); Glucose 135 mg/dL (65-115); Osmolality Calculated 290 mOsm/kg (285-295); Potassium 4.4 mmol/L (3.5-5.1); Sodium 138 mmol/L (136-145); Total Bilirubin 0.2 mg/dL (0.15-1.2); Total Protein 6.9 g/dL (6.6-8.7)
[2023-12-22] MEDS: sodium chlor 0.9% + KCl 20 mEq 20 MEQ/1,000 ML BAG 500 MEQ IV (08:38)
[2023-12-22] MEDS: magnesium sulfate premix 2 GM/50 ML PIGGYBACK IV (08:40)
[2023-12-22] MEDS: famotidine 20 mg/2 mL INJ IVP (09:49)
[2023-12-22] MEDS: sodium chloride 0.9% 250 ML 75 ML IV (09:49)
[2023-12-22] MEDS: diphenhydrAMINE 50 mg/mL SDV 1mL 25 MG IVP (09:53)
[2023-12-22] MEDS: dexamethasone 4 mg/mL INJ 12 MG IVP (10:00)
[2023-12-22] MEDS: OLANZapine 5 mg TABLET PO (10:06)
[2023-12-22] MEDS: palonosetron 0.25 mg/5 mL SDV IVP (10:06)
[2023-12-22] MEDS: fosaprepitant 150 MG in sodium chloride 0.9% 150 ML 300 MG IV (10:17)
[2023-12-22] MEDS: CISPLATIN IV (10:56)
[2023-12-22] MEDS: SODIUM CHLORIDE 0.9% IV (10:56)
[2023-12-22] MEDS: FUROsemide 10 mg/mL SDV 2mL 20 MG IVP (12:22)
[2023-12-22] MEDS: potassium chloride 20 MEQ in sodium chloride 0.9% 500 ML 500 MEQ IV (12:26)
[2023-12-22 13:25] VITALS: BP 151/82; PULSE 71; TEMP 36.2; O2SAT 95
== END 2023-12-24 23:59 | disposition home or self-care (01) ==
PROVIDERS: Internal Medicine Medical Oncology; Nurse Practitioner Family; Family Provider Nurse Practitioner Family; PCP Nurse Practitioner Family; Visit Provider Radiology Radiation Oncology
DX: Z51.0 Encounter for antineoplastic radiation therapy (principal); C14.8 Malignant neoplasm of overlapping sites of lip, oral cavity and pharynx; C77.0 Secondary and unspecified malignant neoplasm of lymph nodes of head, face and neck
CPT/HCPCS: 77336; 77386; 80053; 85025; 96361; 96365; 96366; 96367; 96368; 96375; 96413; J1100; J1200; J1453; J1940; J2469; J3475; J3480; J3490; J7040; J7050; J9060

== ENCOUNTER 2024-01-05 09:03 | Oncology outpatient (recurring) (ONCR) | payer OTHER, SELFPAY ==
--- NOTE | 2023-12-27 10:00 | ONCRAD TMN_ITS ---
Radiation Oncology Weekly Treatment Management Patient: Con Alberto MR#: [id number] : 1960 Attending Physician: Dr. 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 ID: [id number], Energy: 6X, Dose/Fx (cGy): 200, #Fx: , Dose Correction (cGy): 0, Total Dose Delivered (cGy): 4,600, Start Date: 11/24/2023, Elapsed Days: 33 Reason for visit: The patient is being seen today as part of their regularly scheduled weekly on treatment visits to assess for acute toxicities from radiotherapy. Review of Systems: Patient has lost 2 pounds this week. This was the first weight he is lost during the course of his treatment. He says he really cannot taste anything and is quit eating his ice cream. Vital Signs: Performed on 12/27/2023 9:34 AM BMI - 23.959 kg/m2 (high), Height - 73 in, Weight - 181.6 lbs, Temperature - 98.3 f, Pulse - 91 /min, Respiration - 16 /min, O2 Sat - 97 %, Pain - 0, Fatigue - 7 and BP - 136/ 87 mm(hg). Physical Exam: On exam his skin is very erythematous but there is no moist or dry desquamation. Imaging: Radiation therapy imaging related to accurate target localization (i.e. KV, MV and CBCT) was reviewed. Appropriate changes, if any, were made to ensure treatment accuracy. Plan: Will continue with his treatments as planned. His will continue to put the lotion on 2-3 times a day. I encouraged him to increase the amount of supplement he is taking in through his PEG tube since he is not eating his ice cream anymore. We only have another week and a half of treatment. I reminded him that he will feel the same for approximately 1 to 2 weeks after. Signed by: Dr. Kim Vitale 12/27/2023 9:59:40 AM
[2023-12-29 08:09] VITALS: BP 120/75; PULSE 87; O2SAT 94
[2023-12-29 08:22] LABS: Basophils % 0.3 %; Eosinophils # 0.1 10^3/uL (0.0-0.8); Eosinophils % 0.8 %; Hematocrit 32.8 % (37-53); Lymphocytes # 0.9 10^3/uL (0.8-4.8); Lymphocytes % 12.7 %; Mean Corpuscular HGB Conc 34.5 g/dL (30-55); Mean Corpuscular Hemoglobin 29.4 pg (27-33); Mean Corpuscular Volume 85.2 fl (82-101); Mean Platelet Volume 11.2 fL (7.4-10.4); Monocytes # 0.6 10^3/uL (0.2-0.9); Monocytes % 8.7 %; Neutrophils # 5.72 10^3/uL (1.8-7.7); Neutrophils % 77.4 %; Nucleated Red Blood Cells % 0 %; Platelet Count 173 10^3/cmm (157-399); Red Blood Count 3.85 10^6/uL (3.85-5.65); White Blood Count 7.39 10^3/uL (3.29-11.43)
[2023-12-29 08:25] LABS: Alanine Aminotransferase 15 U/L (0-41); Alkaline Phosphatase 125 U/L (40-130); Anion Gap 18.2 (5-19); Aspartate Amino Transferase 13 U/L (0-40); Blood Urea Nitrogen 23 mg/dL (8-23); Calcium 9.4 mg/dL (8.5-10.5); Carbon Dioxide 24 mmol/L (22-29); Chloride 102 mmol/L (98-107); Creatinine Clr Calc Pharmacy 106.5123; Globulin 3.5 g/dL (1.3-4.6); Glucose 126 mg/dL (65-115); Osmolality Calculated 293 mOsm/kg (285-295); Potassium 5.2 mmol/L (3.5-5.1); Sodium 139 mmol/L (136-145); Total Bilirubin 0.2 mg/dL (0.15-1.2); Total Protein 7.5 g/dL (6.6-8.7)
[2023-12-29] MEDS: sodium chlor 0.9% + KCl 20 mEq 20 MEQ/1,000 ML BAG 500 MEQ IV (08:47)
[2023-12-29] MEDS: magnesium sulfate premix 2 GM/50 ML PIGGYBACK IV (08:47)
[2023-12-29] MEDS: sodium chloride 0.9% 250 ML 75 ML IV (11:00)
[2023-12-29] MEDS: dexamethasone 4 mg/mL INJ 12 MG IVP (11:01)
[2023-12-29] MEDS: OLANZapine 5 mg TABLET PO (11:02)
[2023-12-29] MEDS: famotidine 20 mg/2 mL INJ IVP (11:06)
[2023-12-29] MEDS: palonosetron 0.25 mg/5 mL SDV IVP (11:11)
[2023-12-29] MEDS: diphenhydrAMINE 50 mg/mL SDV 1mL 25 MG IVP (11:14)
[2023-12-29] MEDS: fosaprepitant 150 MG in sodium chloride 0.9% 150 ML 300 MG IV (11:21)
[2023-12-29] MEDS: SODIUM CHLORIDE 0.9% IV (12:18)
[2023-12-29] MEDS: CISPLATIN IV (12:18)
[2023-12-29] MEDS: FUROsemide 10 mg/mL SDV 2mL 20 MG IVP (13:24)
[2023-12-29] MEDS: sodium chloride 0.9% 500 ML IV (13:24)
[2023-12-29 14:30] VITALS: BP 134/80; PULSE 77; RESP 18; TEMP 36.1; O2SAT 98
--- NOTE | 2024-01-03 10:31 | ONCRAD TMN_ITS ---
Radiation Oncology Weekly Treatment Management Patient: Con Alberto MR#: [id number] : 1960> Attending Physician: Dr. 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 ID: [id number], Energy: 6X, Dose/Fx (cGy): 200, #Fx: , Dose Correction (cGy): 0, Total Dose Delivered (cGy): 5,600, Start Date: 11/24/2023, Elapsed Days: 40 Reason for visit: The patient is being seen today as part of their regularly scheduled weekly on treatment visits to assess for acute toxicities from radiotherapy. Review of Systems: Patient had an episode of nausea yesterday after they used his feeding tube. He threw up again last night. He had significant heartburn as well. This morning he has been taking his nausea medicine and just feels queasy but was able to use his PEG tube. He denies any trouble breathing. He has noticed no lower extremity swelling. Vital Signs: Performed on 01/03/2024 9:47 AM BMI - 20.796 kg/m2, Height - 79 in, Weight - 184.6 lbs, Temperature - 96.7 f, Pulse - 118 /min (high), Respiration - 16 /min, O2 Sat - 90 % (low), Pain - 0, Fatigue - 0 and BP - 139/ 90 mm(hg). Physical Exam: Patient appears to be less fur polisher than usual. His skin across the treatment field is erythematous. The drainage from his mouth is now a mild yellow in color. His oral cavity reveals continued problems with thrush. His lungs revealed clear breath sounds throughout. Lower extremities did not have any edema. Homans' sign was negative. Imaging: Radiation therapy imaging related to accurate target localization (i.e. KV, MV and CBCT) was reviewed. Appropriate changes, if any, were made to ensure treatment accuracy. Plan: At this point he is tachycardic and hypoxic. He is not have any appreciable shortness of breath. With his history of cancer and his tachycardia and hypoxia I have recommended to him that we make sure he has not developed a pulmonary embolism. I put through an order for a stat CTA. We are waiting to hear back from radiology to see if we get this done today. Medical oncology will send refills of his anxiety medicine and I have sent another refill on his thrush medicine. Signed by: Dr. Kim Vitale 01/03/2024 10:29:56 AM
--- NOTE | 2024-01-05 14:06 | N.ONRD TS_ITS ---
Radiation Oncology Treatment Summary Patient: Con Alberto MR#: [id number] : 1960 Age: 63 Sex: Male Dictated by: Dr. 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 ID: [id number], Energy: 6X, Dose/Fx (cGy): 200, #Fx: 30 / 30, Dose Correction (cGy): 0, Total Dose Delivered (cGy): 6,000, Start Date: 11/24/2023, End Date: 01/05/2024, Elapsed Days: 42 Clinical Summary: The patient tolerated RT well. Patient had done well into the last 2 days of his treatment. He then began to develop increasing nausea and emesis. At 1 point he was even tachycardic and mildly hypoxic. This resolved. He continued to have nausea and emesis mostly in the evening. He felt it is due to the increasing problems with thrush which is currently failing to respond to his Diflucan. He also has developed heartburn which she is having difficulty controlling. We talked today about continuing the nausea medicine. He does not think he is getting dehydrated at all. He is still using his PEG tube. He has restarted another course of Diflucan. At this point we also talked about doing Carafate to see if this would help soothe his heartburn. Plan: End of treatment today. Continue on the above medication until the skin reaction resolves. Follow up in one month. Signed by: Dr. Kim Vitale>01/05/2024 2:04:35 PM <<Signature on File>>
== END 2024-01-23 23:59 | disposition home or self-care (01) ==
PROVIDERS: Nurse Practitioner Family; Family Provider Nurse Practitioner Family; PCP Nurse Practitioner Family; Visit Provider Radiology Radiation Oncology
DX: Z51.0 Encounter for antineoplastic radiation therapy; C14.8 Malignant neoplasm of overlapping sites of lip, oral cavity and pharynx; C77.0 Secondary and unspecified malignant neoplasm of lymph nodes of head, face and neck
CPT/HCPCS: 77336; 77386; 80053; 85025; 96361; 96367; 96375; 96413; 99024; J1100; J1200; J1453; J1940; J2469; J3475; J3480; J3490; J7040; J7050; J9060

== ENCOUNTER 2024-01-09 08:39 | Emergency (ER) | payer OTHER, SELFPAY ==
[2024-01-09 08:53] VITALS: BP 107/71; PULSE 111; TEMP 36.6; O2SAT 96; BMI 25.1
--- NOTE | 2024-01-09 09:08 | XR_ITS ---
WS: [id number] Abdomen series: PA CHEST AND 2 VIEWS OF THE ABDOMEN HISTORY: abdominal pain COMPARISON: None available. Lungs are clear. RIGHT subclavian Port-A-Cath with tip overlying the RIGHT heart. Surgical sutures ar e noted bilaterally in the lower neck. No pneumonia. No pulmonary congestion. No free air beneath the diaphragm. Suspect gastrostomy tube. There is a foreign body over the LEFT up per abdomen. Increased attenuation in the central abdomen with displacement of bowel. This may be flu id-filled loops of bowel. No air-fluid levels are identified but no true upright projection. LEFT renal outline is not identified. XR/XR acute abdomen series 04670 IMPRESSION: 1. No pneumonia. 2. No free air beneath the diaphragm. 3. Increased soft tissue in the central abdomen with slight displacement of se veral bowel loops. May be fluid-filled bowel. No prior studies for comparison. No true upright projection. CT may be necessary to better evaluate the abdomen for mass or obstruction.
[2024-01-09 09:40] LABS: Basophils % 0.2 %; Eosinophils % 0.2 %; Hematocrit 27.3 % (37-53); Lymphocytes # 0.4 10^3/uL (0.8-4.8); Lymphocytes % 7.9 %; Mean Corpuscular HGB Conc 34.1 g/dL (30-55); Mean Corpuscular Hemoglobin 29.9 pg (27-33); Mean Corpuscular Volume 87.8 fl (82-101); Mean Platelet Volume 10.2 fL (7.4-10.4); Monocytes # 0.4 10^3/uL (0.2-0.9); Monocytes % 8.7 %; Neutrophils # 3.99 10^3/uL (1.8-7.7); Neutrophils % 82.6 %; Nucleated Red Blood Cells % 0 %; Platelet Count 302 10^3/cmm (157-399); Red Blood Count 3.11 10^6/uL (3.85-5.65); Red Cell Distribution Width 15.2 % (12.1-15.1); White Blood Count 4.83 10^3/uL (3.29-11.43)
[2024-01-09 10:02] LABS: Lactic Sepsis W/Reflex 1.7 mmol/L (0.5-2.2)
[2024-01-09 10:03] LABS: Alanine Aminotransferase 44 U/L (0-41); Alkaline Phosphatase 117 U/L (40-130); Anion Gap 18.5 (5-19); Aspartate Amino Transferase 23 U/L (0-40); Blood Urea Nitrogen 32 mg/dL (8-23); C Reactive Protein 136.8 mg/L (0.0-4.9); Calcium 9.8 mg/dL (8.5-10.5); Carbon Dioxide 22 mmol/L (22-29); Chloride 95 mmol/L (98-107); Creatinine Clr Calc Pharmacy 76.6594; Globulin 4.1 g/dL (1.3-4.6); Glomerular Filtration Rate 67.8 mL/min (90-130); Glucose 108 mg/dL (65-115); Lipase 27 U/L (13-60); Osmolality Calculated 277 mOsm/kg (285-295); Potassium 5.5 mmol/L (3.5-5.1); Sodium 130 mmol/L (136-145); Total Bilirubin 0.4 mg/dL (0.15-1.2); Total Protein 8.1 g/dL (6.6-8.7)
[2024-01-09 10:05] LABS: Slide Review Slide Review Perform
[2024-01-09 10:09] LABS: Procalcitonin 0.22 ng/mL (0-0.5)
--- NOTE | 2024-01-09 10:25 | CT_ITS ---
WS: [id number] CT CHEST, ABDOMEN AND PELVIS WITH CONTRAST HISTORY: vomiting, weakness TECHNIQUE: Contiguous 5 mm axial imaging performed through the chest, abdomen and pelvis with IV cont rast, oral contrast has Been provided. Coronal and sagittal reformats chest. Coronal and sagittal reformats through the abdom en and pelvis. All CT scans at [facility] use at least one of these dose optimization techniq ues: automated exposure control; mA and/or kV adjustment per patient size (includes targeted exams wh ere dose is matched to clinical indication); or iterative reconstruction. CONTRAST: Omnipaque 350; 70 mL IV. DLP: 1345.28 mGy.cm COMPARISON: None available. Chest CT: No pulmonary mass. There are a few very tiny micronodules at the lung apices. Focal linear scar at the LEFT apex. No pneumonia. Right-sided central line. Mild atherosclerosis aorta. Normal siz e pulmonary artery. Normal size heart. No pericardial or pleural effusions. No mediastinal or hilar a denopathy. Abdomen CT: Normal liver, spleen and gallbladder. No common bile duct obstruction. Normal pancreas. N ormal adrenal glands. No renal obstruction or significant perinephric stranding. Mild atherosclerosis aorta and mesenteric arteries. Very mild central sclerosing mesenteritis. There are a few tiny lymph nodes. No pathologic lymph node s. Nondistended stomach. There is a PEG tube in position. No small bowel obstruction. No colon obstructi on. Normal size appendix with appendicoliths. No colitis. Pelvic CT: No free fluid or adenopathy. Mild prostate enlargement with central calcification. Urinary bladder is not distended. No osteoblastic or osteolytic bone disease. Hypertrophic bone formation at the RIGHT hip from prior i njury most likely. Linear tract in the proximal RIGHT femur appears to be from hardware removal. CT/CT chest abdpel w/*[id number] IMPRESSION: 1. No pneumonia. No evidence for metastatic disease to the lungs. 2. No chest, abdomen or pelvic lymphadenopathy. 3. No ascites. 4. PEG tube is present in the stomach. 5. No GI tract obstruction. 6. Mild sclerosing mesenteritis. No significant adenopathy. 7. RIGHT central line. 8. No renal obstruction.
--- NOTE | 2024-01-09 10:27 | CT_ITS ---
WS: [id number] CT NECK WITH CONTRAST HISTORY: concern for infection, history of head and neck cancer TECHNIQUE: Contiguous 2 mm axial images are performed through the neck with intravenous contrast. Sag ittal and coronal reformats are also submitted. All CT scans at [facility] use at least one o f these dose optimization techniques: automated exposure control; mA and/or kV adjustment per patient size (includes targeted exams where dose is matched to clinical indication); or iterative reconstruc tion. CONTRAST: CONTRAST: Omnipaque 350; 100 mL IV. DLP: 317.61 mGy.cm COMPARISON: 09/14/2023 Patient is status post total lower lip resection with anterior mandibulectomy and bilateral neck diss ection. Postsurgical site centered along the RIGHT lower lip and resected mandible is identified. Multiple fl uid collections some containing air are noted along the mandible resection site. Along the posterior resection site cystic mass with thickened measures 3.1 x 1.8 cm. More anteriorly is an additional sim ilar collection measuring 1.5 x 2.3 cm. There is extensive soft tissue edema. More focal areas noted anteriorly with soft tissue edema. There is soft tissue thickening and enhancement at the resection s ite. Edema extends deep to the tongue base. At this time there is no compromise of the airway. There is a single lymph node enhancing measuring 8 mm just deep to the sternocleidomastoid muscle. Th is lymph node has increased slightly in size but could be reactive. CT/CT neck w con* [id number] IMPRESSION: 1. Patient is status post extensive postoperative resection of the lower lip a nd portions of the mandible with neck dissection. 2. There are multiple fluid collections with enhancing page and soft tissue e margarita centered at the resection site of the RIGHT mandible. Highly suspicious fo r multifocal abscesses with edema extending to the tongue base. No compromise o f the airway. The largest collection measures 3.1 x 1.8 cm at the resection sit e. 3. No definite adenopathy. There is an 8 mm lymph node along the LEFT neck whi ch is enhancing but very small in size. This could be reactive or early metasta tic involvement.
--- NOTE | 2024-01-09 10:33 | W.ED.NAVMDI ---
HPI - Nausea/Vomiting/Diarrhea General: Chief complaint: Nausea/Vomiting/Diarrhea Stated complaint: head and mouth cancer--vomiting Time Seen by Provider: 01/09/24 09:03 History of Present Illness: 63-year-old man with history of head neck cancer status post chemo and radiation. states he completed chemo and radiation and had surgical excision of 70 lymph nodes with 1 positive for cancer which is why he ended up getting chemo with the radiation. Last radiation was about a week ago. He has redness and swelling of his right jaw which has been present for some time now, but he has been having some drainage out of his anterior mouth area which has become worse. He has been having some nausea and vomiting for the last few days. is concerned for infection and for possible issues with his feeding tube. No known fevers. No altered mental status. He does not have any acute pain. Related Data Previous Rx's Medication Instructions Recorded lisinopril 10 mg tablet 10 mg PO DAILY #90 tabs 09/20/23 lorazepam 1 mg tablet 0.5 - 1 mg (0.5 - 1 x 1 mg) PO Q6H 11/24/23 PRN Severe Nausea #30 tabs prochlorperazine maleate 10 mg 10 mg PO Q4H PRN Mild Nausea #30 11/24/23 tablet (Compazine) tabs famotidine 20 mg tablet 20 mg PO BID #60 tabs 12/15/23 lidocaine HCl 2 % mucosal solution 5 ml mucous membrane QID PRN pain 12/20/23 (Lidocaine Viscous) #100 mL citalopram 20 mg tablet 20 mg PO DAILY #30 tabs 01/03/24 fluconazole 100 mg tablet 100 mg PO DAILY thrush #10 tabs 01/05/24 (Diflucan) sucralfate 100 mg/mL oral 10 ml PO QID esophagitis #300 mL 01/05/24 suspension (Carafate) Allergies Allergy/AdvReac Type Severity Reaction Status Date / Time Penicillins Allergy Severe ADR-Itching Verified 01/09/24 09:01 aspirin Allergy Intermediate ADR-Gastrointestinal Verified 01/09/24 09:01 Upset Sulfa (Sulfonamide Allergy Intermediate ADR-Nose Verified 01/09/24 09:01 Antibiotics) Bleed Review of Systems Narrative: Constitutional symptoms: Negative except as documented in HPI. Skin symptoms: Negative except as documented in HPI. Eye symptoms: Negative except as documented in HPI. ENMT symptoms: Negative except as documented in HPI. Respiratory symptoms: Negative except as documented in HPI. Cardiovascular symptoms: Negative except as documented in HPI. Gastrointestinal symptoms: Negative except as documented in HPI. Genitourinary symptoms: Negative except as documented in HPI. Musculoskeletal symptoms: Negative except as documented in HPI. Neurologic symptoms: Negative except as documented in HPI. Psychiatric symptoms: Negative except as documented in HPI. Endocrine symptoms: Negative except as documented in HPI. PFSH ED PFSH: Medical History (Updated 01/09/24 @ 15:08 by Jazmin Chacko MD) Port-A-Cath in place 12/21/23 Dr Man Depression Hypertension Oral-mouth cancer Surgical History History of oral surgery (09/27/23) composite total lower lip resection with anterior mandibulectomy, right neck dissection, left osteocutaneous fibular free flap, and split-thickness skin graft S/P ORIF (open reduction internal fixation) fracture right leg fracture Social History Smoking and tobacco/nicotine status: tobacco/nicotine user, details unknown (20 years chewing tobacco use/quit 2023) Quit status (tobacco/nicotine): has quit using Former quit date comment: He quit smoking 20 yrs ago. He chewed tobacco for 30 yrs, quit August 2023. Alcohol intake: current Physical Exam Narrative: EXAM NARRATIVE: General: Alert, no acute distress. Skin: Warm, dry. Head: Normocephalic, atraumatic. Neck: Supple, trachea midline. Eye: Extraocular movements are intact. Ears, nose, mouth and throat: Patient has extensive redness and swelling around his jaw and lower right cheek. He says this is been present for some time but swelling may be a little worse. He is not having drainage out of a spot on his anterior left side of his lip. He says this been going on for some time now but has become worse Cardiovascular: Regular, Normal peripheral perfusion. Respiratory: Lungs are clear to auscultation, respirations are non-labored, breath sounds are equal, Symmetrical chest wall expansion. Gastrointestinal: Soft, Nontender, Non distended Musculoskeletal: Normal ROM, no deformity. Neurological: Alert and oriented, No focal neurological deficit observed. Psychiatric: Cooperative, appropriate mood & affect. Course Vital Signs: Vital signs: Vital Signs Temperature 98 F 01/09/24 08:53 Pulse Rate 91 01/09/24 12:20 Blood Pressure 103/74 01/09/24 12:20 Pulse Oximetry 95 01/09/24 12:20 Oxygen Delivery Me thod Room Air 01/09/24 12:20 MDM - Nausea/Vomiting/Diarrhea Medical Decision Making Lab Review: Laboratory results were reviewed and interpreted by myself the emergency room physician. No leukocytosis. White count is 4.8. Hemoglobin is 9.3. BUN/creatinine of 32 and 1.1. Patient has been to be slightly dehydrated so fluids are being given. Sodium is little bit low as well. At 130. CT of the chest abdomen pelvis showed no acute processes. His feeding tube is in place. No pneumonias. No obstructions. CT of the neck with contrast: Status post extensive postoperative resection of the lower lip and portions of the mandible with neck dissection. Multiple collections enhancing wall soft tissue edema centered at the resection site of the right mandible. Highly suspicious for multifocal abscesses with edema standing to the tongue. Consultation: I spoke with Dr. Dey who is followed with the patient. He recommends transfer back to [facility] Consultation: I spoke with Dr. Yoko Mccloud with ENT at [facility]. She recommends transfer to the emergency room there. Consultation: I spoke with Dr. Rogers at the emergency room at [facility] and accepts the patient to the emergency room. He recommends air transportation rather than ground I reviewed the patient's medical record. Reexamination: Patient remained stable. No increased work of breathing. No altered mental status. No focal motor deficits. Assessment and plan: Abscess of the jaw ?Holding on antibiotics for now this seems indolent and patient does not appear septic and this might change any kind of culturing that might need to be done when his abscesses drained - Discussed findings and plan with patient. Answered any questions. - All laboratory values were reviewed and interpreted personally by myself, the ER physician - All imaging was reviewed and interpreted personally by myself, the ER physician. - Evaluation and treatment of this problem were appropriate in the emergency setting Medical Records most recent oncology clinic note. e had presented with an enlarging mass on the lower lip. He was seen initially by Dr. Davis and biopsy confirmed squamous cell carcinoma. Neck CT on 09/14/2023 showed a 4.7 x 3.3 x 2.9 cm solid mass involving the lower lip and premandibular soft tissues. Also noted was a 2.2 x 1.9 x 1.4 cm right submandibular lymph node. He was referred to Dr. Jeyson Mortensen at [facility]. On 09/27/2023 he underwent composite total lower lip resection with anterior mandibulectomy, bilateral neck dissection, left osteocutaneous fibular free flap, left radial forearm free flap, and split thickness skin graft. Pathology showed moderately differentiated invasive squamous cell carcinoma measuring 5.5 cm in greatest dimension. The a depth of invasion was noted to be at least 25 mm. Carcinoma was noted to invade the mandible cortex and involve the skin of the face. The margins were negative, measured at 2 mm to the deep floor of the mouth and 3.5 mm to the midline floor of mouth mucosal margin. Bone margins were negative. A total of 76 lymph nodes were included in the specimen, 1 of which showed metastatic involvement measuring 2.5 cm. Extranodal extension was present measuring less than or equal to 2 mm. On 11/24/2023 he began radiation, and currently with weekly cisplatin chemotherapy. He tolerated the initial cisplatin infusion without acute toxicity, and he continued with his week 2 treatment on 12/01/2023. 12/22/23: Mr. Alberto is here for a 1 week follow-up visit. He is accompanied by his today. States he continues to have fatigue which is worse the first 2 days after treatment. His energy then improves throughout the rest of the week. He was able to mow the yard this week. Appetite continues to be decreased. He has altered taste and is not taking any oral supplementation. Denies any fever or night sweats. He has a recent diagnosis of thrush and is being treated by Dr. Vitale. Denies shortness of breath, cough, or chest pain. Continues to have mild edema in his left lower extremity from prior grafting and current wound. His states that the wound appears to be healing well. They saw wound care on Tuesday and was given the go ahead to follow-up in 2 weeks. He has occasional nausea but has medications that are effective. Heartburn has been controlled with famotidine twice daily via PEG tube. No diarrhea, constipation, or blood in the stool. Denies abdominal pain. No symptoms. No muscle or joint pain. Denies headaches or dizziness. Continues to have some numbness and tingling in that left lower extremity. Anxiety/depression controlled on citalopram. He uses [id number] medications for sleep and they have been effective. 12/29/23 Mr. Alberto is here today for a 1 week follow-up. He is accompanied by his . Has been tolerating cisplatin well. This will be his sixth and final cycle. Radiation to be completed on 01/12/24. He has a follow-up with Dr. Dey on January 08. [facility] will be 6 weeks after radiation therapy has been completed. He has significant fatigue and spends in the chair. Has decreased. He is using Jevity 1.5-12 cartons per day through his PEG. He has very little oral intake denies fever or night sweats no mouth sores or sore throat. States his tongue still feels a little sore after treatment by Dr. Vitale. Denies shortness of breath, cough, chest pain, or edema. He has had some nausea but antiemetics emetics have benefit this. Heartburn has been controlled with famotidine. Denies diarrhea, constipation, blood in the stool, or abdominal pain. No symptoms. Continues to have facial pain with numbness and tingling. Denies headaches or dizziness. Depression that is controlled with medications. Denies homicidal or suicidal ideations. Has been sleeping well with use of Benadryl. Lab Data 01/09/24 09:32 01/09/24 09:32 Radiology Impressions Chest/Abdomen X-ray 01/09/24 09:08 IMPRESSION: 1. No pneumonia. 2. No free air beneath the diaphragm. 3. Increased soft tissue in the central abdomen with slight displacement of several bowel loops. May be fluid-filled bowel. No prior studies for comparison. No true upright projection. CT may be necessary to better evaluate the abdomen for mass or obstruction. Chest/Abdomen/Pelvis CT 01/09/24 10:25 IMPRESSION: 1. No pneumonia. No evidence for metastatic disease to the lungs. 2. No chest, abdomen or pelvic lymphadenopathy. 3. No ascites. 4. PEG tube is present in the stomach. 5. No GI tract obstruction. 6. Mild sclerosing mesenteritis. No significant adenopathy. 7. RIGHT central line. 8. No renal obstruction. Neck CT 01/09/24 10:27 IMPRESSION: 1. Patient is status post extensive postoperative resection of the lower lip and portions of the mandible with neck dissection. 2. There are multiple fluid collections with enhancing page and soft tissue edema centered at the resection site of the RIGHT mandible. Highly suspicious for multifocal abscesses with edema extending to the tongue base. No compromise of the airway. The largest collection measures 3.1 x 1.8 cm at the resection site. 3. No definite adenopathy. There is an 8 mm lymph node along the LEFT neck which is enhancing but very small in size. This could be reactive or early metastatic involvement. Laboratory Results WBC 4.83 10^3/uL (3.29-11.43) 01/09/24 09:32 RBC 3.11 10^6/uL (3.85-5.65) L 01/09/24 09:32 Hgb 9.30 g/dL (11.27-16.99) L 01/09/24 09:32 Hct 27.3 % (37-53) L 01/09/24 09:32 MCV 87.8 fl (82-101) 01/09/24 09:32 MCH 29.9 pg (27-33) 01/09/24 09:32 MCHC 34.1 g/dL (30-55) 01/09/24 09:32 RDW 15.2 % (12.1-15.1) H 01/09/24 09:32 Plt Count 302 10^3/cmm (157-399) 01/09/24 09:32 MPV 10.2 fL (7.4-10.4) 01/09/24 09:32 Neut % (Auto) 82.6 % 01/09/24 09:32 Lymph % (Auto) 7.9 % 01/09/24 09:32 [place] % (Auto) 8.7 % 01/09/24 09:32 Eos % (Auto) 0.2 % 01/09/24 09:32 Baso % (Auto) 0.2 % 01/09/24 09:32 Neut # (Auto) 3.99 10^3/uL (1.8-7.7) 01/09/24 09:32 Lymph # (Auto) 0.4 10^3/uL (0.8-4.8) L 01/09/24 09:32 [place] # (Auto) 0.4 10^3/uL (0.2-0.9) 01/09/24 09:32 Eos # (Auto) 0.0 10^3/uL (0.0-0.8) 01/09/24 09:32 Baso # (Auto) 0.0 10^3/uL (0.0-0.1) 01/09/24 09:32 Nucleated RBC % (auto) 0 % 01/09/24 09:32 Nucleated RBCs # 0.0 /100WBC 01/09/24 09:32 Sodium 130 mmol/L (136-145) L 01/09/24 09:32 Potassium 5.5 mmol/L (3.5-5.1) H 01/09/24 09:32 Chloride 95 mmol/L (98-107) L 01/09/24 09:32 Carbon Dioxide 22 mmol/L (22-29) 01/09/24 09:32 Anion Gap 18.5 (5-19) 01/09/24 09:32 BUN 32 mg/dL (8-23) H 01/09/24 09:32 Creatinine 1.1 mg/dL (0.7-1.2) 01/09/24 09:32 GFR Calculation 67.8 mL/min (90-130) L 01/09/24 09:32 Glucose 108 mg/dL (65-115) 01/09/24 09:32 Calculated Osmolality 277 mOsm/kg (285-295) L 01/09/24 09:32 Lactic Acid 1.7 mmol/L (0.5-2.2) 01/09/24 09:32 Calcium 9.8 mg/dL (8.5-10.5) 01/09/24 09:32 Total Bilirubin 0.4 mg/dL (0.15-1.2) 01/09/24 09:32 AST 23 U/L (0-40) 01/09/24 09:32 ALT 44 U/L (0-41) H 01/09/24 09:32 Alkaline Phosphatase 117 U/L (40-130) 01/09/24 09:32 C-Reactive Protein 136.8 mg/L (0.0-4.9) H 01/09/24 09:32 Total Protein 8.1 g/dL (6.6-8.7) 01/09/24 09:32 Albumin 4.0 g/dL (3.5-5.2) 01/09/24 09:32 Globulin 4.1 g/dL (1.3-4.6) 01/09/24 09:32 Lipase 27 U/L (13-60) 01/09/24 09:32 Procalcitonin 0.22 ng/mL (0-0.5) 01/09/24 09:32 Urine Color Yellow (Yellow) 01/09/24 10:24 Urine Appearance Clear (CLEAR) 01/09/24 10:24 Urine pH 5 (5-7) 01/09/24 10:24 Ur Specific [place] 1.020 (1.005-1.030) 01/09/24 10:24 Urine Protein Neg (Negative) 01/09/24 10:24 Urine Glucose (UA) Norm (Normal) 01/09/24 10:24 Urine Ketones Negative (Negative) 01/09/24 10:24 Urine Blood Neg (Negative) 01/09/24 10:24 Urine Nitrate Negative (Negative) 01/09/24 10:24 Urine Bilirubin Neg (Negative) 01/09/24 10:24 Urine Urobilinogen Norm mg/dL (Negative) 01/09/24 10:24 Ur Leukocyte Esterase Negative (Negative) 01/09/24 10:24 Urine RBC 0-4 /hpf (0-2) H 01/09/24 10:24 Urine WBC 0-4 /hpf (0-5) H 01/09/24 10:24 Ur Squamous Epith Cells 0-4 /hpf (0-5) H 01/09/24 10:24 Amorphous Sediment Not Reportable 01/09/24 10:24 Urine Bacteria Trace /hpf (NONE) 01/09/24 10:24 Hyaline Casts 25-40 /lpf H 01/09/24 10:24 Fine Granular Casts 0-4 /lpf H 01/09/24 10:24 Urine Mucus 1+ /hpf 01/09/24 10:24 All radiology interpretation(s) finalized by discharge Discharge Plan Discharge Clinical Impression: Abscess of jaw Condition: Stable Prescriptions: No Action famotidine 20 mg tablet 20 mg PO BID Qty: 60 2RF Rx Instructions: OK to crush and administer through PEG lisinopril 10 mg tablet 10 mg PO DAILY Qty: 90 1RF lorazepam 1 mg tablet 0.5 - 1 mg PO Q6H PRN (Reason: Severe Nausea) Qty: 30 3RF prochlorperazine maleate [Compazine] 10 mg tablet 10 mg PO Q4H PRN (Reason: Mild Nausea) Qty: 30 3RF lidocaine HCl [Lidocaine Viscous] 2 % solution 5 ml mucous membrane QID PRN (Reason: pain) Qty: 100 3RF Rx Instructions: add Maalox 100ml and benadryl 100ml to make mouthwash, swish and swallow citalopram 20 mg tablet 20 mg PO DAILY Qty: 30 0RF sucralfate [Carafate] 100 mg/mL suspension 10 ml PO QID Qty: 300 2RF Rx Instructions: swish in mouth and swallow; use after food/drink fluconazole [Diflucan] 100 mg tablet 100 mg PO DAILY Qty: 10 0RF Referrals: Thomas Baum FNP [Primary Care Provider] - Coding Level of Care Code ED [employer] for Jilliang Irma
[2024-01-09 10:52] LABS: Bilirubin Urine Neg (Negative); Blood Urine Neg (Negative); Glucose Urine UA Norm (Normal); Ketones Urine Negative (Negative); Leukocyte Esterase Urine Negative (Negative); Nitrate Urine Negative (Negative); Protein Urine Neg (Negative); Urine Appearance Clear (CLEAR); Urine Color Yellow (Yellow); Urobilinogen Urine Norm (Negative); pH Urine 5 (5-7)
[2024-01-09] MEDS: sodium chloride 0.9% 1,000 ML 999 ML IV (11:02)
[2024-01-09 11:08] LABS: Add Urine Culture? No; Bacteria Urine TRACE /hpf; Fine Granular Casts Urine 0-4 /lpf; Hyaline Casts Urine 25-40 /lpf; Mucus Urine 1+ /hpf; RBC Urine 0-4 /hpf (0-2); Squamous Epithelial Cell Urine 0-4 /hpf (0-5); WBC Urine 0-4 /hpf (0-5)
[2024-01-09] MEDS: iohexol 350 mg/mL 500 mL Btl (per mL) IV (11:32)
[2024-01-09 12:20] VITALS: BP 103/74; PULSE 91; O2SAT 95
--- NOTE | 2024-01-09 15:02 | PC.NURSE ---
PT HAS YELLOW COLORED DRAINAGE FROM LEFT SIDE OF MOUTH. PT HAS SIGNIFICANT SWELLING TO TISSUE SURROUNDING MOUTH AND JAW. SKIN IS RED IN COLOR AND WARM TO TOUCH. PT HAS SIGNIFICANT HX OF MOUTH AND THROAT CANCER. PT STATES HE SEES DR. FREDERICK FOR ONCOLOGY AND SEES DR. WALLACE FOR ENT.
[2024-01-09 15:13] VITALS: BP 120/74; PULSE 100; RESP 15; O2SAT 98
[2024-01-09 15:43] VITALS: BP 120/74; PULSE 98; O2SAT 98
== END 2024-01-09 15:46 ==
PROVIDERS: Emergency Provider Emergency Medicine; Family Provider Nurse Practitioner Family; PCP Nurse Practitioner Family
DX: M27.2 Inflammatory conditions of jaws (principal); I10 Essential (primary) hypertension; Z87.891 Personal history of nicotine dependence; Z85.89 Personal history of malignant neoplasm of other organs and systems; Z92.21 Personal history of antineoplastic chemotherapy; Z92.3 Personal history of irradiation
CPT/HCPCS: 36415; 70491; 71260; 74022; 74177; 80053; 81001; 83605; 83690; 84145; 85025; 86140; 87040; 96360; 99285; J7030

== ENCOUNTER → 2024-01-23 09:24 | Outpatient (BNVA) | payer OTHER, SELFPAY | PROVIDERS: Family Provider Nurse Practitioner Family; PCP Nurse Practitioner Family; Visit Provider Thoracic Surgery (Cardiothoracic Vascular Surgery) | DX: L02.91 Cutaneous abscess, unspecified (principal); C06.9 Malignant neoplasm of mouth, unspecified | CPT/HCPCS: 87070; 87075; 87205 ==

== ENCOUNTER 2024-02-06 08:37 | Oncology outpatient (recurring) (ONCR) | payer OTHER, SELFPAY ==
[2024-01-26 12:08] LABS: Basophils % 0.5 %; Eosinophils # 0.1 10^3/uL (0.0-0.8); Eosinophils % 1.1 %; Hematocrit 29.1 % (37-53); Lymphocytes # 1.2 10^3/uL (0.8-4.8); Lymphocytes % 16.2 %; Mean Corpuscular Volume 90.9 fl (82-101); Mean Platelet Volume 11.2 fL (7.4-10.4); Monocytes # 0.6 10^3/uL (0.2-0.9); Monocytes % 8.4 %; Neutrophils # 5.48 10^3/uL (1.8-7.7); Neutrophils % 72.6 %; Nucleated Red Blood Cells % 0 %; Platelet Count 318 10^3/cmm (157-399); Red Cell Distribution Width 17.2 % (12.1-15.1); White Blood Count 7.54 10^3/uL (3.29-11.43)
[2024-01-26 12:24] LABS: Alanine Aminotransferase 20 U/L (0-41); Alkaline Phosphatase 125 U/L (40-130); Anion Gap 15.9 (5-19); Aspartate Amino Transferase 19 U/L (0-40); Blood Urea Nitrogen 24 mg/dL (8-23); Calcium 9.4 mg/dL (8.5-10.5); Carbon Dioxide 25 mmol/L (22-29); Chloride 101 mmol/L (98-107); Glomerular Filtration Rate 85.5 mL/min (90-130); Glucose 147 mg/dL (65-115); Osmolality Calculated 291 mOsm/kg (285-295); Potassium 4.9 mmol/L (3.5-5.1); Sodium 137 mmol/L (136-145); Total Bilirubin 0.2 mg/dL (0.15-1.2)
--- NOTE | 2024-02-06 13:18 | ONCRAD EPV_ITS ---
Radiation Oncology Established Patient Visit Patient: Con Alberto [id number] : 1960 Age: 63 Sex: Male Dictated by: Dr. 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 He apparently developed an infection and had to have the area drained and was placed on antibiotics just having completed his second round. Subjectively today he is actually feeling fairly well. He has a fairly decent appetite but he still uses his PEG tube 90% of the time. He is unable to chew because all of his teeth were pulled. He has been trying to do soft foods about once a day. He says his taste is returned nicely. He is due at this point to visit with his ear nose and throat's surgical team in 2 weeks. They will be getting his first set of scans at that time. He is then scheduled to follow-up with Dr. Davis as well. Current Medications: Allergies: Current Complaints / Review of Systems: . Vital Signs: Performed on 02/06/2024 8:53 AM BMI - 24.382 kg/m2 (high), Height - 73 in, Weight - 184.8 lbs, Temperature - 98 f, Pulse - 63 /min, Respiration - 16 /min, O2 Sat - 97 %, Pain - 0, Fatigue - 2 and BP - 116/ 78 mm(hg). Physical Exam: General: Alert and oriented x 3. No acute distress. HEENT: Patient has had extensive resection of the lower mandible and lip. The skin graft is now the same color as the surrounding tissue. The skin from the radiation changes has nearly completely healed. There is no moist or dry desquamation noted. He still has some saliva that he continues to wipe off with a towel.. NECK: Supple without supraclavicular or jugular lymphadenopathy. Pulmonary: Respiratory rate is regular nonlabored performance Status: 90 Lab: None pending. Pathology: Primary, c14.8 - malignant neoplasm of overlapping sites of lip, oral cavity and pharynx, Diagnosed 10/07/2023 (active) stage x and Primary, c77.0 - secondary and unspecified malignant neoplasm of lymph nodes of head, face and neck, Diagnosed 10/07/2023 (active) . 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 He will subsequently see Dr. Dey to undergo evaluation in the interim. I have asked him to return at 6 months or call if any problems should arise in the interim. He has recovered nicely in terms of his taste and swallowing but he just does not seem to have much desire to eat anything because it soft. I reminded him that many people do not have a feeding tube and they sustain themselves on a liquid and soft diet. I have encouraged him to try and convert over to this so that when he does get his teeth placed he will be able to still swallow. He will otherwise call if any problems should arise in the interim Signed by: 02/06/2024 1:16:58 PM <<Signature on File>> Time spent with patient:20 CPT Code: CPT Code:
== END 2024-02-23 23:59 | disposition home or self-care (01) ==
PROVIDERS: Nurse Practitioner Family; Family Provider Nurse Practitioner Family; PCP Nurse Practitioner Family; Visit Provider Radiology Radiation Oncology
DX: C00.4 Malignant neoplasm of lower lip, inner aspect (principal)
CPT/HCPCS: 36591; 80053; 85025

== ENCOUNTER 2024-03-02 09:11 | Oncology outpatient (recurring) (ONCR) | payer OTHER, SELFPAY ==
[2024-03-02 09:48] LABS: Basophils % 0.3 %; Eosinophils # 0.2 10^3/uL (0.0-0.8); Eosinophils % 2.7 %; Hematocrit 32.1 % (37-53); Lymphocytes # 1.1 10^3/uL (0.8-4.8); Lymphocytes % 15.3 %; Mean Corpuscular HGB Conc 32.1 g/dL (30-55); Mean Corpuscular Hemoglobin 28.9 pg (27-33); Mean Corpuscular Volume 89.9 fl (82-101); Mean Platelet Volume 11.2 fL (7.4-10.4); Monocytes # 0.4 10^3/uL (0.2-0.9); Monocytes % 6.4 %; Neutrophils # 5.19 10^3/uL (1.8-7.7); Nucleated Red Blood Cells % 0 %; Platelet Count 265 10^3/cmm (157-399); Red Blood Count 3.57 10^6/uL (3.85-5.65); Red Cell Distribution Width 13.6 % (12.1-15.1); White Blood Count 6.92 10^3/uL (3.29-11.43)
[2024-03-02 10:05] LABS: Alanine Aminotransferase 16 U/L (0-41); Albumin Level 3.9 g/dL (3.5-5.2); Alkaline Phosphatase 125 U/L (40-130); Aspartate Amino Transferase 15 U/L (0-40); Chloride 100 mmol/L (98-107); Potassium 4.3 mmol/L (3.5-5.1); Sodium 136 mmol/L (136-145)
[2024-03-02 10:25] LABS: Anion Gap 16.3 (5-19); Blood Urea Nitrogen 22 mg/dL (8-23); Calcium 9.1 mg/dL (8.5-10.5); Carbon Dioxide 24 mmol/L (22-29); Globulin 3.8 g/dL (1.3-4.6); Glomerular Filtration Rate 85.5 mL/min (90-130); Glucose 152 mg/dL (65-115); Osmolality Calculated 288 mOsm/kg (285-295); Total Bilirubin 0.3 mg/dL (0.15-1.2); Total Protein 7.7 g/dL (6.6-8.7)
== END 2024-03-24 23:59 | disposition home or self-care (01) ==
PROVIDERS: Nurse Practitioner Family; Family Provider Nurse Practitioner Family; PCP Nurse Practitioner Family; Visit Provider Radiology Radiation Oncology
DX: C00.4 Malignant neoplasm of lower lip, inner aspect (principal)
CPT/HCPCS: 36591; 80053; 85025

== ENCOUNTER → 2024-03-29 09:47 | Outpatient (BNVA) | payer MEDICAID, SELFPAY | PROVIDERS: Family Provider Nurse Practitioner Family; PCP Nurse Practitioner Family; Visit Provider Thoracic Surgery (Cardiothoracic Vascular Surgery) | DX: I96 Gangrene, not elsewhere classified (principal); T81.31XD Disruption of external operation (surgical) wound, not elsewhere classified, subsequent encounter; Y83.8 Other surgical procedures as the cause of abnormal reaction of the patient, or of later complication, without mention of misadventure at the time of the procedure | CPT/HCPCS: 97597; A6212 ==

== ENCOUNTER → 2024-04-04 11:03 | Outpatient (BNVA) | payer MEDICAID, SELFPAY | PROVIDERS: Family Provider Nurse Practitioner Family; PCP Nurse Practitioner Family; Visit Provider Thoracic Surgery (Cardiothoracic Vascular Surgery) | DX: T81.31XD Disruption of external operation (surgical) wound, not elsewhere classified, subsequent encounter (principal); Y83.8 Other surgical procedures as the cause of abnormal reaction of the patient, or of later complication, without mention of misadventure at the time of the procedure | CPT/HCPCS: 97597 ==

== ENCOUNTER 2024-04-13 08:16 | Oncology outpatient (recurring) (ONCR) | payer MEDICAID, SELFPAY ==
[2024-04-13 09:02] LABS: Basophils % 0.3 %; Eosinophils # 0.2 10^3/uL (0.0-0.8); Eosinophils % 2.6 %; Hematocrit 35.9 % (37-53); Lymphocytes % 16.6 %; Mean Corpuscular HGB Conc 33.7 g/dL (30-55); Mean Corpuscular Hemoglobin 28.7 pg (27-33); Mean Corpuscular Volume 85.1 fl (82-101); Mean Platelet Volume 11.4 fL (7.4-10.4); Monocytes # 0.5 10^3/uL (0.2-0.9); Monocytes % 8.2 %; Neutrophils # 4.11 10^3/uL (1.8-7.7); Nucleated Red Blood Cells % 0 %; Platelet Count 187 10^3/cmm (157-399); Red Blood Count 4.22 10^6/uL (3.85-5.65); Red Cell Distribution Width 13.2 % (12.1-15.1); White Blood Count 5.72 10^3/uL (3.29-11.43)
[2024-04-13 09:27] LABS: Carcinoembryonic Antigen 1.9 ng/mL (0.0-4.7)
[2024-04-13 09:38] LABS: Alanine Aminotransferase 12 U/L (0-41); Albumin Level 3.9 g/dL (3.5-5.2); Alkaline Phosphatase 112 U/L (40-130); Aspartate Amino Transferase 14 U/L (0-40); Blood Urea Nitrogen 19 mg/dL (8-23); Calcium 9.7 mg/dL (8.5-10.5); Carbon Dioxide 24 mmol/L (22-29); Chloride 101 mmol/L (98-107); Globulin 3.3 g/dL (1.3-4.6); Glomerular Filtration Rate 67.8 mL/min (90-130); Glucose 132 mg/dL (65-115); Lactate Dehydrogenase 147 U/L (135-225); Magnesium 1.7 mg/dL (1.7-2.3); Osmolality Calculated 290 mOsm/kg (285-295); Sodium 138 mmol/L (136-145); Total Bilirubin 0.2 mg/dL (0.15-1.2); Total Protein 7.2 g/dL (6.6-8.7)
== END 2024-04-24 23:59 | disposition home or self-care (01) ==
PROVIDERS: Internal Medicine Hematology & Oncology; Family Provider Nurse Practitioner Family; PCP Nurse Practitioner Family; Visit Provider Radiology Radiation Oncology
DX: C00.4 Malignant neoplasm of lower lip, inner aspect (principal); Z95.828 Presence of other vascular implants and grafts; Z90.09 Acquired absence of other part of head and neck; Z92.21 Personal history of antineoplastic chemotherapy; Z92.3 Personal history of irradiation; M27.2 Inflammatory conditions of jaws; S81.802A Unspecified open wound, left lower leg, initial encounter; X58.XXXA Exposure to other specified factors, initial encounter
CPT/HCPCS: 36591; 80053; 82378; 83615; 83735; 85025; 97597; 99214; A6210; A6212

== ENCOUNTER → 2024-07-17 08:12 | Outpatient (BNVA) | payer MEDICAID, SELFPAY | PROVIDERS: Family Provider Nurse Practitioner Family; PCP Nurse Practitioner Family; Visit Provider Thoracic Surgery (Cardiothoracic Vascular Surgery) | DX: I96 Gangrene, not elsewhere classified (principal); T81.31XD Disruption of external operation (surgical) wound, not elsewhere classified, subsequent encounter; Y83.8 Other surgical procedures as the cause of abnormal reaction of the patient, or of later complication, without mention of misadventure at the time of the procedure | CPT/HCPCS: 11042; 97597; 99203; A6446 ==

== ENCOUNTER → 2024-07-24 08:32 | Outpatient (BNVA) | payer MEDICAID, SELFPAY | PROVIDERS: Family Provider Nurse Practitioner Family; PCP Nurse Practitioner Family; Visit Provider Thoracic Surgery (Cardiothoracic Vascular Surgery) | DX: I96 Gangrene, not elsewhere classified (principal); T81.31XD Disruption of external operation (surgical) wound, not elsewhere classified, subsequent encounter; Y83.8 Other surgical procedures as the cause of abnormal reaction of the patient, or of later complication, without mention of misadventure at the time of the procedure | CPT/HCPCS: 11042; 97597 ==

== ENCOUNTER → 2024-07-31 08:39 | Outpatient (BNVA) | payer MEDICAID, SELFPAY | PROVIDERS: Family Provider Nurse Practitioner Family; PCP Nurse Practitioner Family; Visit Provider Thoracic Surgery (Cardiothoracic Vascular Surgery) | DX: I96 Gangrene, not elsewhere classified (principal); T81.31XD Disruption of external operation (surgical) wound, not elsewhere classified, subsequent encounter; Y83.8 Other surgical procedures as the cause of abnormal reaction of the patient, or of later complication, without mention of misadventure at the time of the procedure | CPT/HCPCS: 97597 ==

== ENCOUNTER 2024-08-06 09:33 | Oncology outpatient (recurring) (ONCR) | payer MEDICAID, SELFPAY ==
[2024-08-06 09:56] LABS: Basophils % 0.4 %; Eosinophils # 0.3 10^3/uL (0.0-0.8); Eosinophils % 3.9 %; Hematocrit 37.4 % (37-53); Lymphocytes % 12.4 %; Mean Corpuscular HGB Conc 31.8 g/dL (30-55); Mean Corpuscular Hemoglobin 27.4 pg (27-33); Mean Corpuscular Volume 86.2 fl (82-101); Mean Platelet Volume 11.9 fL (7.4-10.4); Monocytes # 0.5 10^3/uL (0.2-0.9); Monocytes % 6.4 %; Neutrophils # 6.13 10^3/uL (1.8-7.7); Neutrophils % 76.6 %; Nucleated Red Blood Cells % 0 %; Platelet Count 244 10^3/cmm (157-399); Red Blood Count 4.34 10^6/uL (3.85-5.65); Red Cell Distribution Width 13.5 % (12.1-15.1); White Blood Count 7.99 10^3/uL (3.29-11.43)
[2024-08-06 10:10] LABS: Alanine Aminotransferase 30 U/L (0-41); Albumin Level 4.1 g/dL (3.5-5.2); Alkaline Phosphatase 122 U/L (40-130); Anion Gap 14.1 (5-19); Aspartate Amino Transferase 18 U/L (0-40); Blood Urea Nitrogen 27 mg/dL (8-23); Calcium 9.7 mg/dL (8.5-10.5); Carbon Dioxide 26 mmol/L (22-29); Chloride 102 mmol/L (98-107); Creatinine Clr Calc Pharmacy 122.6005; Globulin 3.6 g/dL (1.3-4.6); Glomerular Filtration Rate 114.3 mL/min (90-130); Glucose 135 mg/dL (65-115); Lactate Dehydrogenase 127 U/L (135-225); Magnesium 1.7 mg/dL (1.7-2.3); Osmolality Calculated 293 mOsm/kg (285-295); Potassium 4.1 mmol/L (3.5-5.1); Sodium 138 mmol/L (136-145); Total Bilirubin 0.2 mg/dL (0.15-1.2); Total Protein 7.7 g/dL (6.6-8.7)
[2024-08-06 10:35] LABS: Carcinoembryonic Antigen 2.5 ng/mL (0.0-4.7)
--- NOTE | 2024-08-06 10:46 | ONCRAD EPV_ITS ---
Radiation Oncology Established Patient Visit Patient: Dolly Andujar [id number] : 1960> Age: 63> Sex: Male> Dictated by: [place] Date of Service: 08/06/2024 Referring Physician(s) : Diagnosis: C14.8 - Malignant neoplasm of overlapping sites of lip, oral cavity and pharynx, Diagnosed 10/07/2023 (Active) Stage X, C77.0 - Secondary and unspecified malignant neoplasm of lymph nodes of head, face and neck, Diagnosed 10/07/2023 (Active) Radiotherapy to Date: Course: HN 2023, Treatment Site: HN 60Gy, Ref. ID: [id number], Energy: 6X, Dose/Fx (cGy): 200, #Fx: 30 / 30, Dose Correction (cGy): 0, Total Dose Delivered (cGy): 6,000, Start Date: 11/24/2023, End Date: 01/05/2024, Elapsed Days: 42 Current History: Mr. Albetro is a 63-year-old male who is seen in routine follow-up of this date. Since our last visit approximately 6 months ago he has had 3 reconstruction surgeries. His (U-shaped) flap has 2 areas of poor healing noted. He sees the wound clinic once a week. The areas show exposed plating. He notes pain to be around 5 on a 10 point scale. Current Medications: As noted on med unk notes - Last Reconciled 08/06/24 by Ella Crespo MA apixaban 2.5 mg PO BID cit Allergies: Penicillins Allergy (Severe, Verified 08/06/24 09:55) ADR-Itching aspirin Allergy (Intermediate, Verified 08/06/24 09:55) ADR-Gastrointestinal Upset Sulfa (Sulfonamide Antibiotics) Allergy (Intermediate, Verified 08/06/24 09:55) ADR-Nose Bleed Current Complaints / Review of Systems: As noted above Vital Signs: Performed on 08/06/2024 10:04 AM BMI - 23.748 kg/m2 (high), Height - 73 in, Weight - 180 lbs, Temperature - 98.7 f, Pulse - 101 /min (high), Respiration - 17 /min, O2 Sat - 96 %, Pain - 5, Fatigue - 0 and BP - 122/ 88 mm(hg). Physical Exam: General: Alert and oriented x 3. No acute distress. HEENT: Normocephalic, atraumatic. Extraocular Movements Intact: Pupils Equal, Round, Reactive to Light and Accommodation: Sclerae anicteric. Poor healing (U-shaped) flap with 2 areas of poor healing noted NECK: Supple without supraclavicular or jugular lymphadenopathy. As above LUNGS: Clear to auscultation bilaterally without rales, rhonchi or wheeze. HEART: Regular rate and rhythm, normal S1 and S2 without murmur, gallop or rub. MUSCULOSKELETAL: No tenderness or percussion pain over the axial skeleton, scapulae or pelvis. ABDOMEN: Soft, nontender, nondistended without masses or organomegaly. Bowell sounds are present. EXTREMITIES: No peripheral edema is identified. Limited motor and sensory examination are grossly intact and symmetric bilaterally. NEUROLOGIC: Cranial nerves II ???XII are grossly intact. Normal sensation, strength 5/5 in all extremities, normal gait, no ataxia. Performance Status: KPS 80 Lab: None pending. Pathology: Primary, c14.8 - malignant neoplasm of overlapping sites of lip, oral cavity and pharynx, Diagnosed 10/07/2023 (active) stage x and Primary, c77.0 - secondary and unspecified malignant neoplasm of lymph nodes of head, face and neck, Diagnosed 10/07/2023 (active) . Imaging: See HPI Impression: SCC lower lip with poor healing flap extending into the mid neck PLAN: Continue wound clinic Continue follow-up with ENT RTC in 6 months or sooner if need be on February 06, 2025 at 10:30 AM or sooner if need be. Signed by: 08/06/2024 10:46:17 AM <<Signature on File>> Time spent with patient: 20 minutes CPT Code: * CPT Code: *
== END 2024-08-22 23:59 | disposition home or self-care (01) ==
PROVIDERS: Nurse Practitioner Family; Family Provider Nurse Practitioner Family; PCP Nurse Practitioner Family; Visit Provider Radiology Radiation Oncology
DX: Z08 Encounter for follow-up examination after completed treatment for malignant neoplasm (principal); Z85.819 Personal history of malignant neoplasm of unspecified site of lip, oral cavity, and pharynx; Z95.828 Presence of other vascular implants and grafts; Z72.0 Tobacco use; Z90.09 Acquired absence of other part of head and neck; Z92.3 Personal history of irradiation; D64.9 Anemia, unspecified
CPT/HCPCS: 36591; 80053; 82378; 83615; 83735; 85025; 99213

== ENCOUNTER → 2024-08-07 08:33 | Outpatient (BNVA) | payer MEDICAID, SELFPAY | PROVIDERS: Family Provider Nurse Practitioner Family; PCP Nurse Practitioner Family | DX: I96 Gangrene, not elsewhere classified (principal); T81.31XD Disruption of external operation (surgical) wound, not elsewhere classified, subsequent encounter; Y83.8 Other surgical procedures as the cause of abnormal reaction of the patient, or of later complication, without mention of misadventure at the time of the procedure | CPT/HCPCS: 97597; A6021 ==

== ENCOUNTER → 2024-08-14 08:44 | Outpatient (BNVA) | payer MEDICAID, SELFPAY | PROVIDERS: Family Provider Nurse Practitioner Family; PCP Nurse Practitioner Family; Visit Provider Thoracic Surgery (Cardiothoracic Vascular Surgery) | DX: I96 Gangrene, not elsewhere classified (principal); T81.31XD Disruption of external operation (surgical) wound, not elsewhere classified, subsequent encounter; Y83.8 Other surgical procedures as the cause of abnormal reaction of the patient, or of later complication, without mention of misadventure at the time of the procedure | CPT/HCPCS: 97597 ==

== ENCOUNTER → 2024-08-21 08:34 | Outpatient (BNVA) | payer MEDICAID, SELFPAY | PROVIDERS: Family Provider Nurse Practitioner Family; PCP Nurse Practitioner Family; Visit Provider Thoracic Surgery (Cardiothoracic Vascular Surgery) | DX: I96 Gangrene, not elsewhere classified (principal); T81.31XD Disruption of external operation (surgical) wound, not elsewhere classified, subsequent encounter; Y83.8 Other surgical procedures as the cause of abnormal reaction of the patient, or of later complication, without mention of misadventure at the time of the procedure | CPT/HCPCS: 97597; A6446 ==

== ENCOUNTER → 2024-08-28 09:57 | Outpatient (BNVA) | payer MEDICAID, SELFPAY | PROVIDERS: Family Provider Nurse Practitioner Family; PCP Nurse Practitioner Family; Visit Provider Thoracic Surgery (Cardiothoracic Vascular Surgery) | DX: I96 Gangrene, not elsewhere classified (principal); T81.31XD Disruption of external operation (surgical) wound, not elsewhere classified, subsequent encounter; Y83.8 Other surgical procedures as the cause of abnormal reaction of the patient, or of later complication, without mention of misadventure at the time of the procedure | CPT/HCPCS: 97597; A6021 ==

== ENCOUNTER → 2024-09-04 08:20 | Outpatient (BNVA) | payer MEDICAID, SELFPAY | PROVIDERS: Family Provider Nurse Practitioner Family; PCP Nurse Practitioner Family; Visit Provider Thoracic Surgery (Cardiothoracic Vascular Surgery) | DX: I96 Gangrene, not elsewhere classified (principal); T81.31XD Disruption of external operation (surgical) wound, not elsewhere classified, subsequent encounter; Y83.8 Other surgical procedures as the cause of abnormal reaction of the patient, or of later complication, without mention of misadventure at the time of the procedure | CPT/HCPCS: 97597 ==

== ENCOUNTER → 2024-09-11 09:40 | Outpatient (BNVA) | payer MEDICAID, SELFPAY | PROVIDERS: Family Provider Nurse Practitioner Family; PCP Nurse Practitioner Family; Visit Provider Thoracic Surgery (Cardiothoracic Vascular Surgery) | DX: I96 Gangrene, not elsewhere classified (principal); T81.31XD Disruption of external operation (surgical) wound, not elsewhere classified, subsequent encounter; Y83.8 Other surgical procedures as the cause of abnormal reaction of the patient, or of later complication, without mention of misadventure at the time of the procedure | CPT/HCPCS: 97597; A6021; A6253; J9999 ==

== ENCOUNTER 2024-10-03 10:30 | Oncology outpatient (recurring) (ONCR) | payer MEDICAID, SELFPAY ==
--- NOTE | 2024-09-25 13:30 | CT_ITS ---
WS: [id number] CT NECK TECHNIQUE: Contrast-enhanced CT of the neck with coronal and sagittal reformatted images. CLINICAL INFORMATION: carcinoma of lowe lip COMPARISON: CT 01/09/2024 DLP: 731.[address] scans at [facility] use at least one of these dose optimization techniques: automated exposure control; mA and/or kV adjustment per patient size (includes targeted exams where dose is matched to clinical indication); or iterative reconstruction. FINDINGS: Prior postoperative changes anterior midline mandibulectomy with bilateral neck dissection and lower lip resection. Mild mucosal thickening in the paranasal sinuses. Mastoid air cells are well aerated. Previously described postoperative fluid collections have been drained or resolved. No residual fluid collections. Normal posterior nasopharynx. Airway is patent. Normal thyroid gland. No new or progressive cervical lymphadenopathy. Parotid glands are normal. Mild spondylitic changes cervical spine. Lung apices are well aerated. Aortic calcification. Carotid bulb calcification. CT/CT neck w con* [id number] IMPRESSION: 1. Prior extensive postoperative changes with anterior mandibulectomy with chelsey ateral neck dissection and lower lip resection. 2. Previously described fluid collections have resolved. 3. Airway is patent. 4. No evidence of new or progressive cervical lymphadenopathy. 5. Previously described enhancing RIGHT 8 mm lymph node posterior to the beavers ocleidomastoid is unchanged. 6. No other significant changes.
--- NOTE | 2024-09-25 14:00 | CT_ITS ---
WS: [id number] CT CHEST TECHNIQUE: Contrast enhanced CT of the chest with coronal and sagittal reformatted images. CLINICAL INFORMATION: carcinoma of lower lip COMPARISON: CT 01/09/2024 DLP: 731.[address] scans at [facility] use at least one of these dose optimization techniques: automated exposure control; mA and/or kV adjustment per patient size (includes targeted exams where dose is matched to clinical indication); or iterative reconstruction. FINDINGS: A few tiny micronodules in the lung apices are unchanged. Fibrosis LEFT lung apex. No new suspicious pulmonary parenchymal abnormalities. No mediastinal or hilar lymphadenopathy. No axillary lymphadenopathy. Aortic calcification. Coronary calcification. Normal thyroid gland. RIGHT central venous catheter. No mediastinal or hilar lymphadenopathy. Tiny esophageal hiatal hernia. PEG tube. Small splenule. Adrenal glands are normal. Fatty liver. Hypertrophic changes thoracic spine. CT/CT chest w con* [id number] IMPRESSION: 1. No changes compared to previous. 2. No new suspicious pulmonary parenchymal abnormalities to indicate metastati c disease. 3. No mediastinal or hilar lymphadenopathy. 4. No other significant changes.
[2024-09-25 14:06] LABS: Blood Urea Nitrogen 29 mg/dL (8-23); Glomerular Filtration Rate 97.6 mL/min (90-130)
[2024-09-25] MEDS: iohexol 350 mg/mL 500 mL Btl (per mL) IV (14:13)
[2024-10-03 10:52] LABS: Basophils % 0.3 %; Eosinophils # 0.2 10^3/uL (0.0-0.8); Eosinophils % 2.1 %; Hematocrit 38.5 % (37-53); Lymphocytes # 1.2 10^3/uL (0.8-4.8); Lymphocytes % 16.9 %; Mean Corpuscular HGB Conc 33.8 g/dL (30-55); Mean Corpuscular Hemoglobin 28.6 pg (27-33); Mean Corpuscular Volume 84.8 fl (82-101); Monocytes # 0.7 10^3/uL (0.2-0.9); Neutrophils # 5.14 10^3/uL (1.8-7.7); Neutrophils % 71.3 %; Nucleated Red Blood Cells % 0 %; Platelet Count 269 10^3/cmm (157-399); Red Blood Count 4.54 10^6/uL (3.85-5.65); Red Cell Distribution Width 13.9 % (12.1-15.1); White Blood Count 7.21 10^3/uL (3.29-11.43)
[2024-10-03 11:10] LABS: Alanine Aminotransferase 39 U/L (0-41); Albumin Level 4.1 g/dL (3.5-5.2); Alkaline Phosphatase 109 U/L (40-130); Anion Gap 15.4 (5-19); Aspartate Amino Transferase 21 U/L (0-40); Blood Urea Nitrogen 28 mg/dL (8-23); Calcium 9.9 mg/dL (8.5-10.5); Carbon Dioxide 24 mmol/L (22-29); Chloride 102 mmol/L (98-107); Ferritin 720 ng/mL (30-400); Globulin 3.7 g/dL (1.3-4.6); Glomerular Filtration Rate 113.9 mL/min (90-130); Glucose 144 mg/dL (65-115); Osmolality Calculated 292 mOsm/kg (285-295); Potassium 4.4 mmol/L (3.5-5.1); Sodium 137 mmol/L (136-145); Total Bilirubin 0.2 mg/dL (0.15-1.2); Total Protein 7.8 g/dL (6.6-8.7)
== END 2024-10-22 23:59 | disposition home or self-care (01) ==
PROVIDERS: PCP Nurse Practitioner Family; Visit Provider Internal Medicine
DX: Z53.9 Procedure and treatment not carried out, unspecified reason; C00.4 Malignant neoplasm of lower lip, inner aspect; Z85.819 Personal history of malignant neoplasm of unspecified site of lip, oral cavity, and pharynx; Z95.828 Presence of other vascular implants and grafts; Z72.0 Tobacco use; Z90.09 Acquired absence of other part of head and neck; Z92.3 Personal history of irradiation; D64.9 Anemia, unspecified
CPT/HCPCS: 36591; 70491; 71260; 80053; 82565; 82728; 84520; 85025; 97597; 99213; A6212

== ENCOUNTER → 2024-10-09 09:29 | Outpatient (BNVA) | payer MEDICAID, SELFPAY | PROVIDERS: PCP Nurse Practitioner Family; Visit Provider Thoracic Surgery (Cardiothoracic Vascular Surgery) | DX: I96 Gangrene, not elsewhere classified (principal); T81.31XD Disruption of external operation (surgical) wound, not elsewhere classified, subsequent encounter; Y83.8 Other surgical procedures as the cause of abnormal reaction of the patient, or of later complication, without mention of misadventure at the time of the procedure | CPT/HCPCS: 97597; J9999 ==

== ENCOUNTER → 2024-10-30 09:23 | Outpatient (BNVA) | payer MEDICAID, SELFPAY | PROVIDERS: PCP Nurse Practitioner Family; Visit Provider Thoracic Surgery (Cardiothoracic Vascular Surgery) | DX: I96 Gangrene, not elsewhere classified (principal); T81.31XD Disruption of external operation (surgical) wound, not elsewhere classified, subsequent encounter; Y83.8 Other surgical procedures as the cause of abnormal reaction of the patient, or of later complication, without mention of misadventure at the time of the procedure | CPT/HCPCS: 99213; J9999 ==

== ENCOUNTER → 2024-11-13 09:35 | Outpatient (BNVA) | payer MEDICAID, SELFPAY | PROVIDERS: PCP Nurse Practitioner Family; Visit Provider Thoracic Surgery (Cardiothoracic Vascular Surgery) | DX: I96 Gangrene, not elsewhere classified (principal); T81.31XD Disruption of external operation (surgical) wound, not elsewhere classified, subsequent encounter; Y83.8 Other surgical procedures as the cause of abnormal reaction of the patient, or of later complication, without mention of misadventure at the time of the procedure | CPT/HCPCS: 97597; A6210; J9999 ==

== ENCOUNTER → 2024-11-27 08:20 | Outpatient (BNVA) | payer MEDICAID, SELFPAY | PROVIDERS: PCP Nurse Practitioner Family; Visit Provider Thoracic Surgery (Cardiothoracic Vascular Surgery) | DX: I96 Gangrene, not elsewhere classified (principal); T81.31XD Disruption of external operation (surgical) wound, not elsewhere classified, subsequent encounter; Y83.8 Other surgical procedures as the cause of abnormal reaction of the patient, or of later complication, without mention of misadventure at the time of the procedure | CPT/HCPCS: 97597 ==

== ENCOUNTER → 2024-12-21 09:19 | Outpatient (BNVA) | payer MEDICAID, SELFPAY | PROVIDERS: PCP Nurse Practitioner Family; Visit Provider Thoracic Surgery (Cardiothoracic Vascular Surgery) | DX: I96 Gangrene, not elsewhere classified (principal); T81.31XD Disruption of external operation (surgical) wound, not elsewhere classified, subsequent encounter; Y83.8 Other surgical procedures as the cause of abnormal reaction of the patient, or of later complication, without mention of misadventure at the time of the procedure | CPT/HCPCS: 97597 ==

== ENCOUNTER → 2025-01-04 09:05 | Outpatient (BNVA) | payer MEDICAID, SELFPAY | PROVIDERS: PCP Nurse Practitioner Family; Visit Provider Thoracic Surgery (Cardiothoracic Vascular Surgery) | DX: I96 Gangrene, not elsewhere classified (principal); T81.31XD Disruption of external operation (surgical) wound, not elsewhere classified, subsequent encounter; Y83.8 Other surgical procedures as the cause of abnormal reaction of the patient, or of later complication, without mention of misadventure at the time of the procedure | CPT/HCPCS: 97597; J9999 ==

== ENCOUNTER → 2025-01-08 09:38 | Outpatient (BNVA) | payer MEDICAID, SELFPAY | PROVIDERS: PCP Nurse Practitioner Family; Visit Provider Surgery | DX: K94.23 Gastrostomy malfunction (principal) | CPT/HCPCS: 76000; 99213 ==

== ENCOUNTER 2025-01-14 15:06 | Oncology outpatient (recurring) (ONCR) | payer MEDICAID, SELFPAY ==
--- NOTE | 2025-01-14 15:15 | USCV_ITS ---
Con Alberto Age: 64 Gender: M : 1960 Exam Date: 01/14/2025 15:29 Ordering Phys: CANDIDO Grossman APRN Technologist: ERENDIRA [place]am [place] [facility] [place]: RIGHT ARM THROMBUS MONTHS AGO HISTORY: PRIOR DVT 7 MOTHS AGO PROCEDURES: Venous duplex imaging was performed in only the right upper extremity. The following venous structures were evaluated: internal jugular vein, subclavian vein, axillary vein, and brachial veins. In addition, the basilic vein, cephalic vein, radial vein, and ulnar vein. FINDINGS: No evidence of deep vein thrombosis or superficial thrombophlebitis in the right upper extremity. CONCLUSIONS No right upper extremity DVT. Dr. Adriana Sneed DO (Electronically Signed) Final Date: 15 January 2025 07:39 S
== END 2025-01-22 23:59 | disposition home or self-care (01) ==
PROVIDERS: PCP Nurse Practitioner Family; Visit Provider Internal Medicine
DX: Z53.9 Procedure and treatment not carried out, unspecified reason (principal); C00.4 Malignant neoplasm of lower lip, inner aspect; Z85.819 Personal history of malignant neoplasm of unspecified site of lip, oral cavity, and pharynx; Z95.828 Presence of other vascular implants and grafts; Z72.0 Tobacco use; Z90.09 Acquired absence of other part of head and neck; Z92.3 Personal history of irradiation; D64.9 Anemia, unspecified; I82.609 Acute embolism and thrombosis of unspecified veins of unspecified upper extremity
CPT/HCPCS: 93971

== ENCOUNTER 2025-02-06 10:24 | Oncology outpatient (recurring) (ONCR) | payer MEDICAID, SELFPAY | END 2025-02-22 23:59 | disposition home or self-care (01) | LOC: ONCMED 10:24 | PROVIDERS: PCP Nurse Practitioner Family; Visit Provider Internal Medicine | DX: Z53.9 Procedure and treatment not carried out, unspecified reason (principal); C00.4 Malignant neoplasm of lower lip, inner aspect; Z85.819 Personal history of malignant neoplasm of unspecified site of lip, oral cavity, and pharynx; Z95.828 Presence of other vascular implants and grafts; Z72.0 Tobacco use; Z90.09 Acquired absence of other part of head and neck; Z92.3 Personal history of irradiation; D64.9 Anemia, unspecified; I82.609 Acute embolism and thrombosis of unspecified veins of unspecified upper extremity; I82.611 Acute embolism and thrombosis of superficial veins of right upper extremity | CPT/HCPCS: 97597; J9999 ==

== ENCOUNTER 2025-04-11 10:45 | Oncology outpatient (recurring) (ONCR) | payer OTHER, SELFPAY ==
--- NOTE | 2025-04-04 08:30 | CT_ITS ---
WS: [id number] CT neck w con* [id number] REASON FOR EXAM: carcinoma of lower lip IV CONTRAST ADMINISTERED: 75 mL of Omnipaque 350. TECHNIQUE: Multiple axial images post contrast in the venous phase. Coronal and sagittal reconstructions. COMPARISON EXAMINATION: Contrast CT neck 09/25/2024. TOTAL EXAM DLP: 196.[address] scans at [facility] use at least one of these dose optimization techniques: automated exposure control; mA and/or kV adjustment per patient size (includes targeted exams where dose is matched to clinical indication); or iterative reconstruction. FINDINGS: The current examination is unchanged compared to the previous study. Extensive postoperative soft tissue changes with removal partial resection of the mandible, lower lip, and neck dissection. Asymmetric soft tissue thickening adjacent to the left mandible unchanged. No recurrent tumor or new adenopathy. Enhancing retro-right sternocleidomastoid lymph node unchanged. No focal bone lesion or bone erosion. CT/CT neck w con* [id number] IMPRESSION: Stable postoperative neck.
--- NOTE | 2025-04-04 08:30 | CT_ITS ---
WS: [id number] CT chest w con* [id number] REASON FOR EXAM: Carcinoma of lower lip IV CONTRAST ADMINISTERED: 75 mL of Omnipaque 350. TECHNIQUE: Multiple axial images post intravenous contrast in the pulmonary artery phase. Coronal and sagittal reconstructions. COMPARISON EXAMINATION: CT chest with contrast 09/25/2024. TOTAL EXAM DLP: 429.[address] scans at [facility] use at least one of these dose optimization techniques: automated exposure control; mA and/or kV adjustment per patient size (includes targeted exams where dose is matched to clinical indication); or iterative reconstruction. FINDINGS: Current examination is unchanged compared to the previous study. No lung mass or pulmonary nodules. No significant mediastinal or hilar adenopathy. No acute pulmonary parenchymal or pleural abnormality. Minimal fibrotic scarring and pleural thickening in the mid posterior lower lobes bilaterally more significant on the right. Normal bony thorax. CT/CT chest w con* [id number] IMPRESSION: Stable chest. No findings of primary or metastatic neoplasm.
[2025-04-04 09:21] LABS: Blood Urea Nitrogen 22 mg/dL (8-23)
[2025-04-04] MEDS: iohexol 350 mg/mL 500 mL Btl (per mL) IV ×2 (09:32)
[2025-04-11 11:07] LABS: Hematocrit 42.8 % (37-53); Hemoglobin 14.70 g/dL (11.27-16.99); Mean Corpuscular HGB Conc 34.3 g/dL (30-55); Mean Corpuscular Hemoglobin 30.4 pg (27-33); Mean Corpuscular Volume 88.4 fl (82-101); Nucleated Red Blood Cells % 0 %; Platelet Count 216 10^3/cmm (157-399); Red Blood Count 4.84 10^6/uL (3.85-5.65); White Blood Count 8.43 10^3/uL (3.29-11.43)
[2025-04-11 11:31] LABS: Alanine Aminotransferase 29 U/L (0-41); Albumin Level 4.5 g/dL (3.5-5.2); Alkaline Phosphatase 88 U/L (40-130); Anion Gap 15.9 (5-19); Aspartate Amino Transferase 23 U/L (0-40); Blood Urea Nitrogen 24 mg/dL (8-23); Calcium 9.6 mg/dL (8.5-10.5); Carbon Dioxide 25 mmol/L (22-29); Chloride 103 mmol/L (98-107); Globulin 3.0 g/dL (1.3-4.6); Glucose 103 mg/dL (65-115); Osmolality Calculated 294 mOsm/kg (285-295); Potassium 3.9 mmol/L (3.5-5.1); Sodium 140 mmol/L (136-145); Total Protein 7.5 g/dL (6.6-8.7)
== END 2025-04-24 23:59 | disposition home or self-care (01) ==
PROVIDERS: PCP Nurse Practitioner Family; Visit Provider Internal Medicine
DX: Z45.2 Encounter for adjustment and management of vascular access device (principal); Z95.828 Presence of other vascular implants and grafts
CPT/HCPCS: 70491; 71260; 80053; 82565; 83615; 84520; 85025; 96523